=== PATIENT | male | born 1950 | race Caucasian/White ===

== ENCOUNTER → 2018-03-01 09:29 | Outpatient (CLI) | payer MEDICARE, MEDICAID, SELFPAY ==
[2018-03-01 10:02] LABS: Hematocrit 44.5 % (41-53); Hemoglobin 15.4 g/dL (13.5-17.5)
[2018-03-01 10:33] LABS: Blood Urea Nitrogen 24 mg/dL (9-20); Calcium 10.2 mg/dL (8.4-10.2); Carbon Dioxide 27 mmol/L (22-32); Chloride 101 mmol/L (98-107); Estimated Glomerular Filt Rate > 60.0 mL/min (>60); Glucose 90 mg/dL (80-110); HEMOLYSIS < 15 (0-50); Potassium 4.7 mmol/L (3.4-5.1); Sodium 137 mmol/L (137-145)
[2018-03-01 11:28] LABS: Creatinine Urine Random 69.3 mg/dL
[2018-03-01 11:40] LABS: Protein (Total) Urine Random 48 mg/dL (0-12); Protein Creatinine Ratio Urine 0.69 GRAM/24H
[2018-03-03 13:54] LABS: Parathyroid Hormone Int 24 pg/mL (14-64)
== END ==
PROVIDERS: PCP Family Medicine; Visit Provider Student in an Organized Health Care Education/Training Program
DX: N05.9 Unspecified nephritic syndrome with unspecified morphologic changes (principal); D64.9 Anemia, unspecified; N25.81 Secondary hyperparathyroidism of renal origin; R80.9 Proteinuria, unspecified
CPT/HCPCS: 36415; 80048; 82570; 83970; 84156; 85014; 85018

== ENCOUNTER → 2018-05-26 11:06 | Outpatient (CLI) | payer MEDICARE, MEDICAID, SELFPAY ==
[2018-05-26 12:57] LABS: BUN Creatinine Ratio 21.7 (6-22); Blood Urea Nitrogen 26 mg/dL (9-20); Calcium 10.5 mg/dL (8.4-10.2); Carbon Dioxide 29 mmol/L (22-32); Chloride 100 mmol/L (98-107); Estimated Glomerular Filt Rate > 60.0 mL/min (>60); Glucose 117 mg/dL (80-110); HEMOLYSIS < 15 (0-50); Potassium 5.2 mmol/L (3.4-5.1); Sodium 139 mmol/L (137-145)
[2018-05-26 15:58] LABS: Creatinine Urine Random 88.8 mg/dL; Protein (Total) Urine Random 41 mg/dL (0-12); Protein Creatinine Ratio Urine 0.46 GRAM/24H
[2018-05-27 14:23] LABS: Parathyroid Hormone Int 23 pg/mL (14-64)
== END ==
PROVIDERS: PCP Family Medicine; Visit Provider Student in an Organized Health Care Education/Training Program
DX: N05.9 Unspecified nephritic syndrome with unspecified morphologic changes (principal); R80.9 Proteinuria, unspecified; N25.81 Secondary hyperparathyroidism of renal origin
CPT/HCPCS: 36415; 80048; 82570; 83970; 84156

== ENCOUNTER → 2018-05-28 11:38 | Outpatient (CLI) | payer MEDICARE, MEDICAID, SELFPAY ==
[2018-05-28 12:30] LABS: BUN Creatinine Ratio 16.7 (6-22); Blood Urea Nitrogen 20 mg/dL (9-20); Calcium 9.1 mg/dL (8.4-10.2); Carbon Dioxide 26 mmol/L (22-32); Chloride 101 mmol/L (98-107); Estimated Glomerular Filt Rate > 60.0 mL/min (>60); Glucose 102 mg/dL (80-110); HEMOLYSIS < 15 (0-50); Potassium 4.4 mmol/L (3.4-5.1); Sodium 137 mmol/L (137-145)
== END ==
PROVIDERS: PCP Family Medicine; Visit Provider Student in an Organized Health Care Education/Training Program
DX: N05.9 Unspecified nephritic syndrome with unspecified morphologic changes (principal)
CPT/HCPCS: 36415; 80048

== ENCOUNTER → 2018-08-31 07:49 | Outpatient (CLI) | payer MEDICARE, MEDICAID, SELFPAY ==
--- NOTE | 2018-08-31 07:53 | DI.US.S_ITS ---
PROCEDURE: US ABD AORTA ANEURYSM SCREEN INDICATIONS: SCREENING TECHNIQUE: Real time scanning was performed of the aorta and iliac arteries, with image documentation. COMPARISON: [facility], CT, IVP (ABD & PEL WWO CONTRAST), 10/06/2017, 10:04. FINDINGS: Aorta: Proximal aortic diameter measures 2.3 cm. Mid-aorta measures 1.6 cm. Distal aortic diameter is 1.5 cm. aortic atherosclerosis is present. Iliac arteries: Right common iliac artery measures 1.1 cm. Left common iliac artery measures 0.9 cm. IMPRESSION: Atherosclerotic changes of the abdominal aorta without evidence of aneurysm. Dictated by: Dioni Zamarripa M.D. on 08/31/2018 at 8:53 Approved by: Dioni Zamarripa M.D. on 08/31/2018 at 8:54
== END ==
PROVIDERS: PCP Student in an Organized Health Care Education/Training Program; Visit Provider Student in an Organized Health Care Education/Training Program
DX: Z13.6 Encounter for screening for cardiovascular disorders (principal); I70.0 Atherosclerosis of aorta; F17.200 Nicotine dependence, unspecified, uncomplicated
CPT/HCPCS: 76706

== ENCOUNTER 2019-01-03 17:04 | Emergency (ER) | payer MEDICARE, MEDICAID, SELFPAY ==
[2019-01-03 17:25] VITALS: BP 176/103; PULSE 92; RESP 24; TEMP 36.6; O2SAT 99; BMI 20.7
[2019-01-03] MEDS: SODIUM CHLORIDE 0.9% 1,000 ML 1000 ML IV (17:43)
[2019-01-03 17:52] LABS: Add Manual Diff / Slide Review NO; Alanine Aminotransferase 23 IU/L (21-72); Albumin Globulin Ratio 1.2 (1.0-2.8); Alkaline Phosphatase 54 U/L (38-126); Aspartate Aminotransferase 30 IU/L (17-59); BUN Creatinine Ratio 15.4 (6-22); Basophils Absolute Auto 100 /uL (0-100); Basophils Percent Auto 0.7 % (0-2); Bilirubin Total 0.7 mg/dL (0.2-1.3); Blood Urea Nitrogen 20 mg/dL (9-20); Calcium 9.2 mg/dL (8.4-10.2); Carbon Dioxide 27 mmol/L (22-32); Chloride 98 mmol/L (98-107); Eosinophils Absolute Auto 900 /uL (0-450); Eosinophils Percent Auto 6.6 % (2-4); Estimated Glomerular Filt Rate 54.9 mL/min (>60); Globulin 3.3 g/dL (1.7-4.1); Glucose 94 mg/dL (80-110); HEMOLYSIS 87 (0-50); Hemoglobin 13.6 g/dL (13.5-17.5); Lipase 25 U/L (23-300); Lymphocytes Absolute Auto 3200 /uL (1100-4500); Lymphocytes Percent Auto 25.2 % (25-40); Mean Corpuscular HGB Conc 34.9 % (30-36); Mean Corpuscular Volume 94.5 fL (80-100); Monocytes Absolute Auto 800 /uL (0-900); Monocytes Percent Auto 6.1 % (3-14); Neutrophils Absolute Auto 7900 /uL (1500-7000); Neutrophils Percent Auto 61.4 % (50-75); Platelet Count 396 X10^3/uL (150-400); Red Blood Cell Count 4.13 X10^6/uL (4.5-5.9); Red Cell Distribution Width 12.7 % (11.6-14.8); Sodium 134 mmol/L (137-145); Total Protein 7.3 g/dL (6.3-8.2); White Blood Cell Count 12.9 X10^3/uL (4.5-11.0)
[2019-01-03 17:53] LABS: Potassium 4.6 mmol/L (3.4-5.1)
--- NOTE | 2019-01-03 18:10 | DI.CT.S_ITS ---
PROCEDURE: CT ABDOMEN PELVIS W CON INDICATIONS: pain, 1 week postop hernia, h/o pancreatitis TECHNIQUE: After the administration of intravenous contrast, 5 mm thick sections acquired from the diaphragm to the symphysis. 5 mm coronal and sagittal reformats were acquired. For radiation dose reduction, the following was used: automated exposure control, adjustment of mA and/or kV according to patient size. COMPARISON: [facility], CT, ABDOMEN/PELVIS WITH CONTRAST, 08/17/2014, 11:00. FINDINGS: Image quality: Excellent. ABDOMEN: Lung bases: Lung bases are clear. Heart size is normal. Small hiatal hernia. Solid organs: Liver is normal in size and enhancement. Gallbladder is distended without a thickened wall or fluid around the gallbladder or calcified gallstones.. Biliary system is non dilated. Pancreas enhances normally. Spleen is normal in size and enhancement. No adrenal nodules. Kidneys demonstrate normal size and enhancement, without hydronephrosis. Peritoneum and bowel: Mildly dilated loops of small and large bowel consistent with ileus. No obstruction seen. Remote rectal colonic surgical clips. No free fluid or air. Nodes and vessels: No retroperitoneal or mesenteric adenopathy by size criteria. Aorta and inferior vena cava are normal in size. Mild atherosclerotic calcifications in the aorta and iliacs. Miscellaneous: No ventral hernias. PELVIS: Genitourinary: Bladder wall thickness is normal. Miscellaneous: No inguinal hernias or adenopathy. Bones: No suspicious bony lesions. No vertebral body compression fractures. IMPRESSION: 1. Findings are consistent with ileus. No evidence of obstruction. 2. Mild atherosclerotic calcifications. Dictated by: Ulises Varghese M.D. on 01/03/2019 at 18:48 Approved by: Ulises Varghese M.D. on 01/03/2019 at 18:52
--- NOTE | 2019-01-03 18:10 | DI.RAD.S_ITS ---
PROCEDURE: XR CHEST 1V INDICATIONS: wheeze, abd/back pain TECHNIQUE: One view of the chest was acquired. COMPARISON: [facility], , CHEST 2 VIEW, 12/13/2015, 10:23. FINDINGS: Surgical changes and devices: None. Lungs and pleura: Findings are stable. Chronic scarring in the right upper lobe. No acute pulmonary infiltrates. No pleural effusions or pneumothorax. Mediastinum: Mediastinal contours appear normal. Heart size is normal. Bones and chest wall: No suspicious bony lesions. Overlying soft tissues appear unremarkable. IMPRESSION: No evidence acute pulmonary process. Dictated by: Ulises Varghese M.D. on 01/03/2019 at 18:29 Approved by: Ulises Varghese M.D. on 01/03/2019 at 18:30
[2019-01-03] MEDS: MORPHINE 4 MG/ML INJ IV ×2 (18:20→19:49)
[2019-01-03] MEDS: ONDANSETRON 4 MG/2 ML INJ IV (18:20)
--- NOTE | 2019-01-03 18:31 | ED.ABDPAIN ---
HPI - Abdominal Pain <Brittny Cyr PA-C - Last Filed: 01/03/19 22:00> General Chief Complaint: Abdominal Pain Stated Complaint: stomach pains Time Seen by Provider: 01/03/19 17:45 Source: patient Mode of arrival: ambulatory Limitations: no limitations History of Present Illness HPI narrative: This 68-year-old male comes in due to ?terrible? mid abdominal pain that started abruptly 2 hours ago. He states that this feels somewhat like years ago when he had to have part of his intestine removed due to ?bad bowel?, does not know what the exact problem was. He states that he has had some diarrhea in the last week. He has had a couple of episodes of vomiting though none today. He denies any fever. He states that the pain was radiating through to his back some time ago but is not now. He denies any exacerbating or alleviating features for the pain and states that it is constant. Denies any urinary symptoms or hematuria. He states that he had a groin hernia repaired 1 week ago and thought he was doing okay after surgery. He does take Oxford usually for multiple herniated discs in his back/chronic pain, but states he has not been taking that regularly recently. He denies any chest pain or dyspnea. No new pain in the extremities or other complaints on systems review. He his somewhat vague about the details of his symptoms and medical history, also reviewed nodes per PCP Related Data Home Medications Medication Instructions Recorded Confirmed bismuth subsalicylate #0 05/08/17 11/02/18 [Pepto-Bismol Max St] ranitidine HCl 150 mg PO QDAY #0 05/08/17 11/02/18 albuterol sulfate [Ventolin HFA] 1 puff INHALATION Q4H PRN 01/03/19 01/03/19 dupilumab [Dupixent] 01/03/19 trazodone 50 - 150 mg PO BEDTIME PRN 01/03/19 01/03/19 Previous Rx's Medication Instructions Recorded lorazepam 1 mg tablet 1 mg PO BIDP PRN #60 tab 11/02/18 oxycodone-acetaminophen 7.5 mg-325 1 tab PO TID PRN #90 tab 11/02/18 mg tablet Allergies Allergy/AdvReac Type Severity Reaction Status Date / Time shrimp [SHRIMP] Allergy Unknown Verified 01/03/19 17:40 Review of Systems <Brittny Cyr PA-C - Last Filed: 01/03/19 22:00> Review of Systems ROS Unobtainable: All systems reviewed & are unremarkable except as noted in HPI and below PFSH <Brittny Cyr PA-C - Last Filed: 01/03/19 22:00> Medical History (Updated 01/03/19 @ 21:23 by Kermit Carter RN) Renal insufficiency (Chronic) Chronic low back pain (Chronic 07/23/15) Asthma (Chronic Unknown) Blind in both eyes (Chronic 2013) COPD (chronic obstructive pulmonary disease) (Chronic Unknown) Chronic back pain (Chronic 2005) Chronic kidney disease (CKD) (Chronic Unknown) Dermatitis (Chronic Unknown) Eczema (Chronic 1999) GERD (gastroesophageal reflux disease) (Chronic Unknown) Hypercalcemia (Chronic Unknown) Hypertension (Chronic Unknown) Pancreatitis (Chronic Unknown) Psoriasis (Chronic 1999) Chickenpox (Resolved 1960) Hx SBO (Resolved ~2009) Measles (Resolved 1958) Mumps (Resolved 1963) Surgical History (Updated 01/03/19 @ 18:33 by Brittny Cyr PA-C) S/P hernia repair (Acute) S/P small bowel resection (Resolved ~2009) Family History Brother No problems noted. Father Heart disease Grandfather Influenza Grandmother No problems noted. Mother No problems noted. Grandfather No problems noted. Grandmother No problems noted. Social History Smoking Status: Current every day smoker Social History Smoking Status: Current every day smoker Exam <Brittny Cyr PA-C - Last Filed: 01/03/19 22:00> Narrative Exam Narrative: GENERAL APPEARANCE: Patient appears uncomfortable but in NAD HEENT: PERRL, EOMI, no scleral icterus NECK: Supple LUNGS: Clear to auscultation bilaterally. HEART: Rate and rhythm regular, normal S1 and S2, no S3 or S4. ABDOMEN: Soft, perhaps mildly distended, bowel sounds present x 4 quadrants, no palpable masses. Diffuse tenderness most prominent in the midline. no palpable HSM or CVAT. No clear guarding or rebound EXTREMITIES: No edema, no calf tenderness DERMATOLOGIC: No jaundice or exanthem NEUROLOGIC: Alert and oriented with normal speech and coordination. He is ambulating on his own through the department back and forth to the restroom Initial Vital Signs Initial Vital Signs: Vital Signs Temperature 97.8 F 01/03/19 17:25 Pulse Rate 92 H 01/03/19 17:25 Respiratory Rate 24 01/03/19 17:25 Blood Pressure 176/103 H 01/03/19 17:25 Pulse Oximetry 99 01/03/19 17:25 <Manpreet Hodges DO - Last Filed: 01/04/19 06:11> Initial Vital Signs Initial Vital Signs: Vital Signs Temperature 97.8 F 01/03/19 17:25 Pulse Rate 92 H 01/03/19 17:25 Respiratory Rate 24 01/03/19 17:25 Blood Pressure 176/103 H 01/03/19 17:25 Pulse Oximetry 99 01/03/19 17:25 Course <Brittny Cyr PA-C - Last Filed: 01/03/19 22:00> Additional Information: Patient initially reported feeling improvement in nausea and some improvement after 1st dose of morphine. He then requested more pain medication while we were waiting for call back from surgeon at [facility] due to patient's postoperative ileus. Advised that he may need to be admitted for fluids and pain control. After 2nd dose of pain medication, he got up to use the restroom and we found that he had ripped out his IV and left. Prior to receiving pain medication he agreed that he would get a ride if needed. Due to concern for impaired driving as well as patient welfare, police were called and this was reported. Patient was noted to be ambulatory on his own in the department multiple times prior to walking out Orders Ordered: Discontinued Medications Sodium Chloride (Normal Saline 0.9%) 1,000 mls @ 1,000 mls/hr IV BOLUS ONE Stop: 01/03/19 18:29 Last Infusion: 01/03/19 20:28 Dose: 0 mls/hr Admin: 01/03/19 17:43 Dose: 1,000 mls/hr Sodium Chloride (Normal Saline 0.9%) 1,000 mls @ 125 mls/hr IV CONT NEO Morphine Sulfate (Morphine) 4 mg IV NOW ONE Stop: 01/03/19 18:11 Last Admin: 01/03/19 18:20 Dose: 4 mg Morphine Sulfate (Morphine) 4 mg IV NOW ONE Stop: 01/03/19 19:36 Last Admin: 01/03/19 19:49 Dose: 4 mg Ondansetron HCl (Zofran) 4 mg IV NOW ONE Stop: 01/03/19 18:11 Last Admin: 01/03/19 18:20 Dose: 4 mg Vital Signs - 8 hr 01/03/19 17:25 01/03/19 19:30 Temperature 97.8 F Pulse Rate 92 H 96 H Respiratory Rate 24 23 Blood Pressure 176/103 H Blood Pressure [Left Arm] 154/105 H Pulse Oximetry 99 100 <Manpreet Hodges DO - Last Filed: 01/04/19 06:11> Orders Ordered: Discontinued Medications Sodium Chloride (Normal Saline 0.9%) 1,000 mls @ 1,000 mls/hr IV BOLUS ONE Stop: 01/03/19 18:29 Last Infusion: 01/03/19 20:28 Dose: 0 mls/hr Admin: 01/03/19 17:43 Dose: 1,000 mls/hr Sodium Chloride (Normal Saline 0.9%) 1,000 mls @ 125 mls/hr IV CONT NEO Morphine Sulfate (Morphine) 4 mg IV NOW ONE Stop: 01/03/19 18:11 Last Admin: 01/03/19 18:20 Dose: 4 mg Morphine Sulfate (Morphine) 4 mg IV NOW ONE Stop: 01/03/19 19:36 Last Admin: 01/03/19 19:49 Dose: 4 mg Ondansetron HCl (Zofran) 4 mg IV NOW ONE Stop: 01/03/19 18:11 Last Admin: 01/03/19 18:20 Dose: 4 mg Vital Signs - 8 hr 01/03/19 17:25 01/03/19 19:30 Temperature 97.8 F Pulse Rate 92 H 96 H Respiratory Rate 24 23 Blood Pressure 176/103 H Blood Pressure [Left Arm] 154/105 H Pulse Oximetry 99 100 MDM - Abdominal Pain <Brittny Cyr PA-C - Last Filed: 01/03/19 22:00> Lab Data Attestation: I reviewed the patient's lab results. Result diagrams: 01/03/19 17:39 01/03/19 17:39 Lab Results 01/03/19 01/03/19 01/03/19 Range/Units 17:39 17:39 17:54 WBC 12.9 H (4.5-11.0) X10^3/uL RBC 4.13 L (4.5-5.9) X10^6/uL Hgb 13.6 (13.5-17.5) g/dL Hct 39.0 L (41-53) % MCV 94.5 (80-100) fL MCH 33.0 (26-34) PG MCHC 34.9 (30-36) % RDW 12.7 (11.6-14.8) % Plt Count 396 (150-400) X10^3/uL Neut % (Auto) 61.4 (50-75) % Lymph % (Auto) 25.2 (25-40) % Estill % (Auto) 6.1 (3-14) % Eos % (Auto) 6.6 H (2-4) % Baso % (Auto) 0.7 (0-2) % Neut # (Auto) 7900 H (4922-3546) /uL Lymph # (Auto) 3200 (6257-2482) /uL Estill # (Auto) 800 (0-900) /uL Eos # (Auto) 900 H (0-450) /uL Baso # (Auto) 100 (0-100) /uL Sodium 134 L (137-145) mmol/L Potassium 4.6 (3.4-5.1) mmol/L Chloride 98 (98-107) mmol/L Carbon Dioxide 27 (22-32) mmol/L BUN 20 (9-20) mg/dL Creatinine 1.30 H (0.66-1.25) mg/dL Estimated GFR 54.9 L (>60) mL/min BUN/Creatinine Ratio 15.4 (6-22) Glucose 94 (80-110) mg/dL Lactate 1.1 (0.7-2.1) mmol/L Calcium 9.2 (8.4-10.2) mg/dL Total Bilirubin 0.7 (0.2-1.3) mg/dL AST 30 (17-59) IU/L ALT 23 (21-72) IU/L Alkaline Phosphatase 54 (38-126) U/L Total Protein 7.3 (6.3-8.2) g/dL Albumin 4.0 (3.5-5.0) g/dL Globulin 3.3 (1.7-4.1) g/dL Albumin/Globulin Ratio 1.2 (1.0-2.8) Lipase 25 (23-300) U/L Point of care testing: Urine Dip Bedside Urine Glucose Negative Bedside Urine Bilirubin - Negative Bedside Urine Ketone +/- 5 Urine Specific Davidson 1.015 Bedside Urine Occult Blood +/- Bedside Urine pH 8.5 Bedside Urine Protein - Negative Bedside Urine Urobilinogen - Negative Bedside Urine Nitrite - Negative Bedside Urine Leukocytes - Negative Esterase Imaging Data CT scan - abdomen: Radiologist's impression: [address] [address] [address] Scan Report Signed Patient: Arthur Quinteros [facility]#: [id number] : 1Acct:[id number] Age/Sex: 68 / MDate of Service: 01/03/19 Loc: ED Accession Number: [id number] Procedure: CT abdomen pelvis w con Ordering Provider: Brittny Cyr P.A-C PROCEDURE: CT ABDOMEN PELVIS W CON INDICATIONS: pain, 1 week postop hernia, h/o pancreatitis TECHNIQUE: After the administration of intravenous contrast, 5 mm thick sections acquired from the diaphragm to the symphysis. 5 mm coronal and sagittal reformats were acquired. For radiation dose reduction, the following was used: automated exposure control, adjustment of mA and/or kV according to patient size. COMPARISON: [facility], CT, ABDOMEN/PELVIS WITH CONTRAST, 08/17/2014, 11:00. FINDINGS: Image quality: Excellent. ABDOMEN: Lung bases: Lung bases are clear. Heart size is normal. Small hiatal hernia. Solid organs: Liver is normal in size and enhancement. Gallbladder is distended without a thickened wall or fluid around the gallbladder or calcified gallstones.. Biliary system is non dilated. Pancreas enhances normally. Spleen is normal in size and enhancement. No adrenal nodules. Kidneys demonstrate normal size and enhancement, without hydronephrosis. Peritoneum and bowel: Mildly dilated loops of small and large bowel consistent with ileus. No obstruction seen. Remote rectal colonic surgical clips. No free fluid or air. Nodes and vessels: No retroperitoneal or mesenteric adenopathy by size criteria. Aorta and inferior vena cava are normal in size. Mild atherosclerotic calcifications in the aorta and iliacs. Miscellaneous: No ventral hernias. PELVIS: Genitourinary: Bladder wall thickness is normal. Miscellaneous: No inguinal hernias or adenopathy. Bones: No suspicious bony lesions. No vertebral body compression fractures. IMPRESSION: 1. Findings are consistent with ileus. No evidence of obstruction. 2. Mild atherosclerotic calcifications. Dictated by: Ulises Varghese M.D. on 01/03/2019 at 18:48 Approved by: Ulises Varghese M.D. on 01/03/2019 at 18:52 <Manpreet Hodges DO - Last Filed: 01/04/19 06:11> Lab Data Lab Results 01/03/19 01/03/19 01/03/19 Range/Units 17:39 17:39 17:54 WBC 12.9 H (4.5-11.0) X10^3/uL RBC 4.13 L (4.5-5.9) X10^6/uL Hgb 13.6 (13.5-17.5) g/dL Hct 39.0 L (41-53) % MCV 94.5 (80-100) fL MCH 33.0 (26-34) PG MCHC 34.9 (30-36) % RDW 12.7 (11.6-14.8) % Plt Count 396 (150-400) X10^3/uL Neut % (Auto) 61.4 (50-75) % Lymph % (Auto) 25.2 (25-40) % [place]ill % (Auto) 6.1 (3-14) % Eos % (Auto) 6.6 H (2-4) % Baso % (Auto) 0.7 (0-2) % Neut # (Auto) 7900 H (7128-1198) /uL Lymph # (Auto) 3200 (4650-6621) /uL [place]ill # (Auto) 800 (0-900) /uL Eos # (Auto) 900 H (0-450) /uL Baso # (Auto) 100 (0-100) /uL Sodium 134 L (137-145) mmol/L Potassium 4.6 (3.4-5.1) mmol/L Chloride 98 (98-107) mmol/L Carbon Dioxide 27 (22-32) mmol/L BUN 20 (9-20) mg/dL Creatinine 1.30 H (0.66-1.25) mg/dL Estimated GFR 54.9 L (>60) mL/min BUN/Creatinine Ratio 15.4 (6-22) Glucose 94 (80-110) mg/dL Lactate 1.1 (0.7-2.1) mmol/L Calcium 9.2 (8.4-10.2) mg/dL Total Bilirubin 0.7 (0.2-1.3) mg/dL AST 30 (17-59) IU/L ALT 23 (21-72) IU/L Alkaline Phosphatase 54 (38-126) U/L Total Protein 7.3 (6.3-8.2) g/dL Albumin 4.0 (3.5-5.0) g/dL Globulin 3.3 (1.7-4.1) g/dL Albumin/Globulin Ratio 1.2 (1.0-2.8) Lipase 25 (23-300) U/L Point of care testing: Urine Dip Bedside Urine Glucose Negative Bedside Urine Bilirubin - Negative Bedside Urine Ketone +/- 5 Urine Specific Davidson 1.015 Bedside Urine Occult Blood +/- Bedside Urine pH 8.5 Bedside Urine Protein - Negative Bedside Urine Urobilinogen - Negative Bedside Urine Nitrite - Negative Bedside Urine Leukocytes - Negative Esterase Discharge Plan Departure Patient Disposition: Left Against Medical Advice Clinical Impression: Left against medical advice Discharge Date/Time: 01/03/19 21:22 Interventions: ED Discharge Assessment Last Done: 01/03/19 21:22 Prescriptions: No Action ranitidine HCl 150 MG tablet 150 mg PO QDAY Qty: 0 RF: 0 bismuth subsalicylate [Pepto-Bismol Max St] 525 MG/15 ML suspension Qty: 0 RF: 0 lorazepam 1 mg tablet 1 mg PO BIDP PRN (Reason: anxiety) Qty: 60 RF: 5 oxycodone-acetaminophen 7.5-325 mg tablet 1 tab PO TID PRN (Reason: pain) Qty: 90 RF: 0 trazodone 50 mg tablet 50 - 150 mg PO BEDTIME PRN (Reason: Sleep) RF: 0 albuterol sulfate [Ventolin HFA] 90 mcg/actuation HFA aerosol inhaler 1 puff Inhalation Q4H PRN (Reason: Shortness Of Breath Or Wheezing) RF: 0 Dupixent 300 mg/2 mL syringe RF: 0 Referrals: Jama Pruett MD [Primary Care Provider] - Richi Nunez MD [Non-Staff] - Stand Alone Forms: Against Medical Advice <Manpreet Hodges DO - Last Filed: 01/04/19 06:11> Cosign ED Attending Nohemyature Attestation: I was immediately available in the department for consultation. Documentation has been reviewed. I agree with assessment and plan.
--- NOTE | 2019-01-03 18:34 | ED_ITS ---
HPI - Abdominal Pain <Brittny Cyr PA-C - Last Filed: 01/03/19 22:00> General Chief Complaint: Abdominal Pain Stated Complaint: stomach pains Time Seen by Provider: 01/03/19 17:45 Source: patient Mode of arrival: ambulatory Limitations: no limitations History of Present Illness HPI narrative: This 68-year-old male comes in due to ?terrible? mid abdominal pain that started abruptly 2 hours ago. He states that this feels somewhat like years ago when he had to have part of his intestine removed due to ?bad bowel?, does not know what the exact problem was. He states that he has had some diarrhea in the last week. He has had a couple of episodes of vomiting though none today. He denies any fever. He states that the pain was radiating through to his back some time ago but is not now. He denies any exacerbating or alleviating features for the pain and states that it is constant. Denies any urinary symptoms or hematuria. He states that he had a groin hernia repaired 1 week ago and thought he was doing okay after surgery. He does take [place] usually for multiple herniated discs in his back/chronic pain, but states he has not been taking that regularly recently. He denies any chest pain or dyspnea. No new pain in the extremities or other complaints on systems review. He his somewhat vague about the details of his symptoms and medical history, also reviewed nodes per PCP Related Data Home Medications Medication Instructions Recorded Confirmed bismuth subsalicylate #0 05/08/17 11/02/18 [Pepto-Bismol Max St] ranitidine HCl 150 mg PO QDAY #0 05/08/17 11/02/18 albuterol sulfate [Ventolin HFA] 1 puff INHALATION Q4H PRN 01/03/19 01/03/19 dupilumab [Dupixent] 01/03/19 trazodone 50 - 150 mg PO BEDTIME PRN 01/03/19 01/03/19 Previous Rx's Medication Instructions Recorded lorazepam 1 mg tablet 1 mg PO BIDP PRN #60 tab 11/02/18 oxycodone-acetaminophen 7.5 mg-325 1 tab PO TID PRN #90 tab 11/02/18 mg tablet Allergies Allergy/AdvReac Type Severity Reaction Status Date / Time shrimp [SHRIMP] Allergy Unknown Verified 01/03/19 17:40 Review of Systems <Brittny Cyr PA-C - Last Filed: 01/03/19 22:00> Review of Systems ROS Unobtainable: All systems reviewed & are unremarkable except as noted in HPI and below PFSH <Brittny Cyr PA-C - Last Filed: 01/03/19 22:00> Medical History (Updated 01/03/19 @ 21:23 by Kermit Carter RN) Renal insufficiency (Chronic) Chronic low back pain (Chronic 07/23/15) Asthma (Chronic Unknown) Blind in both eyes (Chronic 2013) COPD (chronic obstructive pulmonary disease) (Chronic Unknown) Chronic back pain (Chronic 2005) Chronic kidney disease (CKD) (Chronic Unknown) Dermatitis (Chronic Unknown) Eczema (Chronic 1999) GERD (gastroesophageal reflux disease) (Chronic Unknown) Hypercalcemia (Chronic Unknown) Hypertension (Chronic Unknown) Pancreatitis (Chronic Unknown) Psoriasis (Chronic 1999) Chickenpox (Resolved 1960) Hx SBO (Resolved ~2009) Measles (Resolved 1958) Mumps (Resolved 1963) Surgical History (Updated 01/03/19 @ 18:33 by Brittny Cyr PA-C) S/P hernia repair (Acute) S/P small bowel resection (Resolved ~2009) Family History Brother No problems noted. Father Heart disease Grandfather Influenza Grandmother No problems noted. Mother No problems noted. Grandfather No problems noted. Grandmother No problems noted. Social History Smoking Status: Current every day smoker Social History Smoking Status: Current every day smoker Exam <Brittny Cyr PA-C - Last Filed: 01/03/19 22:00> Narrative Exam Narrative: GENERAL APPEARANCE: Patient appears uncomfortable but in NAD HEENT: PERRL, EOMI, no scleral icterus NECK: Supple LUNGS: Clear to auscultation bilaterally. HEART: Rate and rhythm regular, normal S1 and S2, no S3 or S4. ABDOMEN: Soft, perhaps mildly distended, bowel sounds present x 4 quadrants, no palpable masses. Diffuse tenderness most prominent in the midline. no palpable HSM or CVAT. No clear guarding or rebound EXTREMITIES: No edema, no calf tenderness DERMATOLOGIC: No jaundice or exanthem NEUROLOGIC: Alert and oriented with normal speech and coordination. He is ambulating on his own through the department back and forth to the restroom Initial Vital Signs Initial Vital Signs: Vital Signs Temperature 97.8 F 01/03/19 17:25 Pulse Rate 92 H 01/03/19 17:25 Respiratory Rate 24 01/03/19 17:25 Blood Pressure 176/103 H 01/03/19 17:25 Pulse Oximetry 99 01/03/19 17:25 <Manpreet Hodges DO - Last Filed: 01/04/19 06:11> Initial Vital Signs Initial Vital Signs: Vital Signs Temperature 97.8 F 01/03/19 17:25 Pulse Rate 92 H 01/03/19 17:25 Respiratory Rate 24 01/03/19 17:25 Blood Pressure 176/103 H 01/03/19 17:25 Pulse Oximetry 99 01/03/19 17:25 Course <Brittny Cyr PA-C - Last Filed: 01/03/19 22:00> Additional Information: Patient initially reported feeling improvement in nausea and some improvement after 1st dose of morphine. He then requested more pain medication while we were waiting for call back from surgeon at [facility] due to patient's postoperative ileus. Advised that he may need to be admitted for fluids and pain control. After 2nd dose of pain medication, he got up to use the restroom and we found that he had ripped out his IV and left. Prior to receiving pain medication he agreed that he would get a ride if needed. Due to concern for impaired driving as well as patient welfare, police were called and this was reported. Patient was noted to be ambulatory on his own in the department multiple times prior to walking out Orders Ordered: Discontinued Medications Sodium Chloride (Normal Saline 0.9%) 1,000 mls @ 1,000 mls/hr IV BOLUS ONE Stop: 01/03/19 18:29 Last Infusion: 01/03/19 20:28 Dose: 0 mls/hr Admin: 01/03/19 17:43 Dose: 1,000 mls/hr Sodium Chloride (Normal Saline 0.9%) 1,000 mls @ 125 mls/hr IV CONT NEO Morphine Sulfate (Morphine) 4 mg IV NOW ONE Stop: 01/03/19 18:11 Last Admin: 01/03/19 18:20 Dose: 4 mg Morphine Sulfate (Morphine) 4 mg IV NOW ONE Stop: 01/03/19 19:36 Last Admin: 01/03/19 19:49 Dose: 4 mg Ondansetron HCl (Zofran) 4 mg IV NOW ONE Stop: 01/03/19 18:11 Last Admin: 01/03/19 18:20 Dose: 4 mg Vital Signs - 8 hr 01/03/19 17:25 01/03/19 19:30 Temperature 97.8 F Pulse Rate 92 H 96 H Respiratory Rate 24 23 Blood Pressure 176/103 H Blood Pressure [Left Arm] 154/105 H Pulse Oximetry 99 100 <Manpreet Hodges DO - Last Filed: 01/04/19 06:11> Orders Ordered: Discontinued Medications Sodium Chloride (Normal Saline 0.9%) 1,000 mls @ 1,000 mls/hr IV BOLUS ONE Stop: 01/03/19 18:29 Last Infusion: 01/03/19 20:28 Dose: 0 mls/hr Admin: 01/03/19 17:43 Dose: 1,000 mls/hr Sodium Chloride (Normal Saline 0.9%) 1,000 mls @ 125 mls/hr IV CONT NEO Morphine Sulfate (Morphine) 4 mg IV NOW ONE Stop: 01/03/19 18:11 Last Admin: 01/03/19 18:20 Dose: 4 mg Morphine Sulfate (Morphine) 4 mg IV NOW ONE Stop: 01/03/19 19:36 Last Admin: 01/03/19 19:49 Dose: 4 mg Ondansetron HCl (Zofran) 4 mg IV NOW ONE Stop: 01/03/19 18:11 Last Admin: 01/03/19 18:20 Dose: 4 mg Vital Signs - 8 hr 01/03/19 17:25 01/03/19 19:30 Temperature 97.8 F Pulse Rate 92 H 96 H Respiratory Rate 24 23 Blood Pressure 176/103 H Blood Pressure [Left Arm] 154/105 H Pulse Oximetry 99 100 MDM - Abdominal Pain <Brittny Cyr PA-C - Last Filed: 01/03/19 22:00> Lab Data Attestation: I reviewed the patient's lab results. Result diagrams: 01/03/19 17:39 01/03/19 17:39 Lab Results 01/03/19 01/03/19 01/03/19 Range/Units 17:39 17:39 17:54 WBC 12.9 H (4.5-11.0) X10^3/uL RBC 4.13 L (4.5-5.9) X10^6/uL Hgb 13.6 (13.5-17.5) g/dL Hct 39.0 L (41-53) % MCV 94.5 (80-100) fL MCH 33.0 (26-34) PG MCHC 34.9 (30-36) % RDW 12.7 (11.6-14.8) % Plt Count 396 (150-400) X10^3/uL Neut % (Auto) 61.4 (50-75) % Lymph % (Auto) 25.2 (25-40) % [place] % (Auto) 6.1 (3-14) % Eos % (Auto) 6.6 H (2-4) % Baso % (Auto) 0.7 (0-2) % Neut # (Auto) 7900 H (4431-6993) /uL Lymph # (Auto) 3200 (1214-5956) /uL [place] # (Auto) 800 (0-900) /uL Eos # (Auto) 900 H (0-450) /uL Baso # (Auto) 100 (0-100) /uL Sodium 134 L (137-145) mmol/L Potassium 4.6 (3.4-5.1) mmol/L Chloride 98 (98-107) mmol/L Carbon Dioxide 27 (22-32) mmol/L BUN 20 (9-20) mg/dL Creatinine 1.30 H (0.66-1.25) mg/dL Estimated GFR 54.9 L (>60) mL/min BUN/Creatinine Ratio 15.4 (6-22) Glucose 94 (80-110) mg/dL Lactate 1.1 (0.7-2.1) mmol/L Calcium 9.2 (8.4-10.2) mg/dL Total Bilirubin 0.7 (0.2-1.3) mg/dL AST 30 (17-59) IU/L ALT 23 (21-72) IU/L Alkaline Phosphatase 54 (38-126) U/L Total Protein 7.3 (6.3-8.2) g/dL Albumin 4.0 (3.5-5.0) g/dL Globulin 3.3 (1.7-4.1) g/dL Albumin/Globulin Ratio 1.2 (1.0-2.8) Lipase 25 (23-300) U/L Point of care testing: Urine Dip Bedside Urine Glucose Negative Bedside Urine Bilirubin - Negative Bedside Urine Ketone +/- 5 Urine Specific [place] 1.015 Bedside Urine Occult Blood +/- Bedside Urine pH 8.5 Bedside Urine Protein - Negative Bedside Urine Urobilinogen - Negative Bedside Urine Nitrite - Negative Bedside Urine Leukocytes - Negative Esterase Imaging Data CT scan - abdomen: Radiologist's impression: [address] [address] [address] Scan Report Signed Patient: Arthur Quinteros [facility]#: [id number] : [id number]:[id number] Age/Sex: 68 / MDate of Service: 01/03/19 Loc: ED Accession Number: [id number] Procedure: CT abdomen pelvis w con Ordering Provider: Brittny Cyr P.A-C PROCEDURE: CT ABDOMEN PELVIS W CON INDICATIONS: pain, 1 week postop hernia, h/o pancreatitis TECHNIQUE: After the administration of intravenous contrast, 5 mm thick sections acquired from the diaphragm to the symphysis. 5 mm coronal and sagittal reformats were acquired. For radiation dose reduction, the following was used: automated exposure control, adjustment of mA and/or kV according to patient size. COMPARISON: [facility], CT, ABDOMEN/PELVIS WITH CONTRAST, 08/17/2014, 11:00. FINDINGS: Image quality: Excellent. ABDOMEN: Lung bases: Lung bases are clear. Heart size is normal. Small hiatal hernia. Solid organs: Liver is normal in size and enhancement. Gallbladder is distended without a thickened wall or fluid around the gallbladder or calcified gallstones.. Biliary system is non dilated. Pancreas enhances normally. Spleen is normal in size and enhancement. No adrenal nodules. Kidneys demonstrate normal size and enhancement, without hydronephrosis. Peritoneum and bowel: Mildly dilated loops of small and large bowel consistent with ileus. No obstruction seen. Remote rectal colonic surgical clips. No free fluid or air. Nodes and vessels: No retroperitoneal or mesenteric adenopathy by size criteria. Aorta and inferior vena cava are normal in size. Mild atherosclerotic calcifications in the aorta and iliacs. Miscellaneous: No ventral hernias. PELVIS: Genitourinary: Bladder wall thickness is normal. Miscellaneous: No inguinal hernias or adenopathy. Bones: No suspicious bony lesions. No vertebral body compression fractures. IMPRESSION: 1. Findings are consistent with ileus. No evidence of obstruction. 2. Mild atherosclerotic calcifications. Dictated by: Ulises Varghese M.D. on 01/03/2019 at 18:48 Approved by: Ulises Varghese M.D. on 01/03/2019 at 18:52 <Manpreet Hodges DO - Last Filed: 01/04/19 06:11> Lab Data Lab Results 01/03/19 01/03/19 01/03/19 Range/Units 17:39 17:39 17:54 WBC 12.9 H (4.5-11.0) X10^3/uL RBC 4.13 L (4.5-5.9) X10^6/uL Hgb 13.6 (13.5-17.5) g/dL Hct 39.0 L (41-53) % MCV 94.5 (80-100) fL MCH 33.0 (26-34) PG MCHC 34.9 (30-36) % RDW 12.7 (11.6-14.8) % Plt Count 396 (150-400) X10^3/uL Neut % (Auto) 61.4 (50-75) % Lymph % (Auto) 25.2 (25-40) % [place] % (Auto) 6.1 (3-14) % Eos % (Auto) 6.6 H (2-4) % Baso % (Auto) 0.7 (0-2) % Neut # (Auto) 7900 H (6220-1673) /uL Lymph # (Auto) 3200 (9813-0605) /uL [place] # (Auto) 800 (0-900) /uL Eos # (Auto) 900 H (0-450) /uL Baso # (Auto) 100 (0-100) /uL Sodium 134 L (137-145) mmol/L Potassium 4.6 (3.4-5.1) mmol/L Chloride 98 (98-107) mmol/L Carbon Dioxide 27 (22-32) mmol/L BUN 20 (9-20) mg/dL Creatinine 1.30 H (0.66-1.25) mg/dL Estimated GFR 54.9 L (>60) mL/min BUN/Creatinine Ratio 15.4 (6-22) Glucose 94 (80-110) mg/dL Lactate 1.1 (0.7-2.1) mmol/L Calcium 9.2 (8.4-10.2) mg/dL Total Bilirubin 0.7 (0.2-1.3) mg/dL AST 30 (17-59) IU/L ALT 23 (21-72) IU/L Alkaline Phosphatase 54 (38-126) U/L Total Protein 7.3 (6.3-8.2) g/dL Albumin 4.0 (3.5-5.0) g/dL Globulin 3.3 (1.7-4.1) g/dL Albumin/Globulin Ratio 1.2 (1.0-2.8) Lipase 25 (23-300) U/L Point of care testing: Urine Dip Bedside Urine Glucose Negative Bedside Urine Bilirubin - Negative Bedside Urine Ketone +/- 5 Urine Specific [place] 1.015 Bedside Urine Occult Blood +/- Bedside Urine pH 8.5 Bedside Urine Protein - Negative Bedside Urine Urobilinogen - Negative Bedside Urine Nitrite - Negative Bedside Urine Leukocytes - Negative Esterase Discharge Plan Departure Patient Disposition: Left Against Medical Advice Clinical Impression: Left against medical advice Discharge Date/Time: 01/03/19 21:22 Interventions: ED Discharge Assessment Last Done: 01/03/19 21:22 Prescriptions: No Action ranitidine HCl 150 MG tablet 150 mg PO QDAY Qty: 0 RF: 0 bismuth subsalicylate [Pepto-Bismol Max St] 525 MG/15 ML suspension Qty: 0 RF: 0 lorazepam 1 mg tablet 1 mg PO BIDP PRN (Reason: anxiety) Qty: 60 RF: 5 oxycodone-acetaminophen 7.5-325 mg tablet 1 tab PO TID PRN (Reason: pain) Qty: 90 RF: 0 trazodone 50 mg tablet 50 - 150 mg PO BEDTIME PRN (Reason: Sleep) RF: 0 albuterol sulfate [Ventolin HFA] 90 mcg/actuation HFA aerosol inhaler 1 puff Inhalation Q4H PRN (Reason: Shortness Of Breath Or Wheezing) RF: 0 Dupixent 300 mg/2 mL syringe RF: 0 Referrals: Jama Pruett MD [Primary Care Provider] - Richi Nunez MD [Non-Staff] - Stand Alone Forms: Against Medical Advice <Manpreet Hodges DO - Last Filed: 01/04/19 06:11> Cosign ED Attending Nohemyature Attestation: I was immediately available in the department for consultation. Documentation has been reviewed. I agree with assessment and plan.
[2019-01-03 18:37] LABS: Lactate (Lactic Acid) 1.1 mmol/L (0.7-2.1)
[2019-01-03 19:30] VITALS: BP 154/105; PULSE 96; RESP 23; O2SAT 100
--- NOTE | 2019-01-03 19:51 | PC.NURSE ---
Patient continually coming out of room and demanding pain medications. Notified provider multiple times. Notified of waiting for provider as well as for [facility] to call back. Pt confronts multiple staff and demands help. States he has never seen a provider and has not had any pain medications. Reminded that he has had Morphine, zofran, and some IV fluids. Pt does not stay in bed to remain connected to IV fluids. Provider notified multiple times that patient requests additional pain medication.
--- NOTE | 2019-01-03 20:14 | PC.NURSE ---
attempt to check on patient. Patient is not in room. IV has been removed and fluids are still running on the floor. unknown what time he left. Provider is already aware.
== END 2019-01-03 21:22 | disposition left against medical advice (07) ==
PROVIDERS: Emergency Medicine; Emergency Provider Internal Medicine; PCP Student in an Organized Health Care Education/Training Program
DX: R10.9 Unspecified abdominal pain (principal)
CPT/HCPCS: 36415; 36591; 71045; 74177; 80053; 81003; 83605; 83690; 85025; 96361; 96374; 96375; 96376; 99283; 99284; J2270; J2405; Q9967

== ENCOUNTER 2019-03-01 09:40 | Inpatient (IN) | payer MEDICARE, SELFPAY ==
[2019-03-01] VITALS (9 sets, daily range): BP systolic 100–146; BP diastolic 71–101; PULSE 72–87; RESP 15–25; TEMP 36.1–36.6; O2SAT 97–100; BMI 17.4
--- NOTE | 2019-03-01 09:54 | DI.RAD.S_ITS ---
PROCEDURE: XR CHEST 1V INDICATIONS: chest pain, weakness, tob abuse, told elevated ca TECHNIQUE: One view of the chest was acquired. COMPARISON: [facility], CT, CT ANGIO CHEST PE, 01/14/2019, 15:01. [facility], CR, XR CHEST 1 VIEW, 01/18/2019, 10:07. FINDINGS: Surgical changes and devices: None. Lungs and pleura: There is shallow lungs is similar to the prior study with mild pulmonary consolidation identified within the right mid lung and a possible scattered areas of mild pulmonary consolidation along the lateral margin of the left lung. Mediastinum: Mediastinal contours appear normal. Heart size is normal. Bones and chest wall: No suspicious bony lesions. Calcific tendinitis of the left shoulder appears to be present. Overlying soft tissues appear unremarkable. IMPRESSION: Patchy airspace disease within the lungs is similar to the previous examination, suspicious for pneumonia. Superimposed chronic lung changes probably are present. The possibility of a right hilar lesion is difficult to exclude. Dictated by: Dioni Zamarripa M.D. on 03/01/2019 at 9:32 Approved by: Dioni Zamarripa M.D. on 03/01/2019 at 9:35
--- NOTE | 2019-03-01 09:57 | ED.SOB ---
HPI - SOB/Dyspnea General Chief Complaint: Shortness of Breath/Dyspnea Stated Complaint: Sent by doctor. Blood is not right Time Seen by Provider: 03/01/19 09:43 Source: patient History of Present Illness This 68-year-old male comes to the emergency department with complaint of weakness, elevated calcium, chest pain shortness of breath. Patient states that he has had pressure in his chest particularly with exertion. He states that it is worse when he walks up stairs. He also gets short of breath when he goes up flights of stairs. He has felt very weak and collapsed after walking up the stairs earlier in the week. Patient states he saw Dr. Hardik norman who is covering for Dr. collins about 4 5 days ago. They did some blood work and he was told his calcium was quite elevated. He was encouraged to go to the emergency department. He was also given an antibiotic which she states had 10 tablets in his once daily. He was told that they suspected he might have cancer based on his elevated calcium. Patient states he has had any fevers or chills. He felt like when he did have pneumonia in the past. He has not been vomiting, he has been having normal bowel movements. He states he has been losing weight and not able to maintain weight. He has lost about 30 lb in the last month or so. He does have a cough and has not been productive. No swelling in his extremities. Patient had surgery for a bowel obstruction at [facility] about a month ago. He states he had some complications he ended up in the assisted. Was slowly gaining weight and then discharged home. He has some asthma according to him, he continues to smoke tobacco daily. He had hernia repair and a small portion of bowel removed many years ago. He denies any alcohol. Smokes. No medication. Dr. Saldaña is his PCP Related Data Home Medications Medication Instructions Recorded Confirmed Pepto-Bismol Max St 1 dose PO DAILY PRN #0 05/08/17 03/01/19 albuterol sulfate [Ventolin HFA] 1 puff INHALATION Q4H PRN 01/03/19 03/01/19 dupilumab [Dupixent] See Rx Instructions .ROUTE .COMPLEX 01/03/19 03/01/19 clotrimazole 1 lozenge/day PO BID 03/01/19 03/01/19 levofloxacin 1 tab PO DAILY 03/01/19 03/01/19 Previous Rx's Medication Instructions Recorded lorazepam 1 mg tablet 1 mg PO BIDP PRN #60 tab 11/02/18 oxycodone-acetaminophen 5 mg-325 1 tab PO TID PRN #90 tab 02/10/19 mg tablet Allergies Allergy/AdvReac Type Severity Reaction Status Date / Time shrimp [SHRIMP] Allergy Unknown Verified 03/01/19 09:46 Review of Systems Constitutional Denies chills, Denies fever(s), Denies lethargy, Reports poor appetite, Reports weakness and Reports weight loss ENT Ears, Nose, Mouth, and Throat: Denies nasal congestion Cardiovascular Reports chest pain, Reports chest pain with activity, Denies diaphoresis, Denies syncope, Reports lightheadedness, Denies radiating jaw, neck or arm pain, Reports dyspnea (Very mild) and Reports dyspnea on exertion Respiratory Denies chest congestion, Reports cough, Reports dyspnea (Very mild), Reports dyspnea on exertion and Denies wheezing Gastrointestinal Gastrointestinal: Denies abdominal pain, Denies change in bowel habits, Reports early satiety, Denies diarrhea, Denies nausea and Denies vomiting Genitourinary Denies hematuria, Denies flank pain, Denies urinary frequency, Denies urinary incontinence and Denies urinary urgency Musculoskeletal Reports back pain (Chronic) Neurologic Denies abnormal movements, Denies syncope, Denies convulsions, Denies seizure-like activity, Denies tremor(s) and Reports weakness Allergic/Immunologic Denies wheezing [facility] Medical History Renal insufficiency (Chronic) Chronic low back pain (Chronic 07/23/15) Asthma (Chronic Unknown) 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 Father Heart disease Grandfather Influenza Grandmother No problems noted. Mother No problems noted. Grandfather No problems noted. Grandmother No problems noted. Social History Smoking Status: Current every day smoker Family History Brother No problems noted. Father Heart disease Grandfather Influenza Grandmother No problems noted. Mother No problems noted. Grandfather No problems noted. Grandmother No problems noted. Social History (Updated 03/01/19 @ 10:02 by Mireille Gil DO) household members: none Smoking Status: Current every day smoker alcohol intake: never substance use type: marijuana Exam Narrative Exam Narrative: GENERAL: Alert and oriented x three, very thin male, mild distress. Patient seems anxious to be in the department. HEENT: Head normocephalic, atraumatic, EOMI, pupils reactive, face symmetric, moist mucous membranes, patient has a caullflower ear on the left. NECK: Supple, full range of motion CARDIOVASCULAR: Regular rate and rhythm without murmurs, rubs or gallops. JVD. No swelling in extremities. RESPIRATORY: Breath sounds equal bilaterally, no wheezes rales or rhonchi. Mild tachypnea. No accessory muscle use. ABDOMEN: Soft, nontender. Normoactive bowel sounds all 4 quadrants. No guarding or rebound, rigidity, no mass : No CVA tenderness EXTREMITIES: Normal range of motion, no clubbing or edema. Neurovascularly intact NEUROLOGICAL: Cranial nerves II through XII grossly intact. Moving all extremities SKIN: Warm, dry, no petechiae, no rashes or lesions. Initial Vital Signs Initial Vital Signs: Vital Signs Temperature 97.7 F 03/01/19 09:46 Pulse Rate 87 03/01/19 09:46 Respiratory Rate 24 03/01/19 09:46 Blood Pressure 146/101 H 03/01/19 09:46 Pulse Oximetry 100 03/01/19 09:46 Course Orders Ordered: ED Orders 03/01/19 09:47 EKG-12 Lead Routine 03/01/19 09:54 XR chest 1V Stat 03/01/19 10:05 Complete Blood Count AUTO DIFF Stat Comprehensive Metabolic Panel Stat Lipase Stat Magnesium Stat Phosphorous Stat Procalcitonin Stat Troponin & CK Cardiac Panel Stat 03/01/19 10:28 Blood Culture Stat 03/01/19 10:33 Lactate (Lactic Acid) Stat 03/01/19 12:15 Calcium Urine Random Routine 03/01/19 13:13 Urine Microscopic Stat 03/01/19 13:24 CT chest wo con Urgent 03/01/19 13:53 Consult to Dietitian, Adult Routine Consult to Pastoral Services Routine 03/01/19 15:47 Education, smoking cessation ONGOING 03/01/19 15:48 Consult to Dietitian, Adult Routine 03/01/19 15:58 thyroid Urgent 03/01/19 18:07 Ionized Calcium Routine Procalcitonin Routine Protein Electrophoresis, Serum Routine 03/02/19 05:00 Complete Blood Count AUTO DIFF Routine Comprehensive Metabolic Panel Routine Magnesium Routine Thyroid Stimulating Hormone Routine Acetaminophen (Tylenol) 650 mg PO Q6HR PRN PRN Reason: As Needed for Fever/Mild Pain Hydrocodone Bitart/Acetaminophen ([place] 5/325) 1 tab PO Q4HR PRN PRN Reason: Pain, Moderate (4-6) Albuterol/Ipratropium (Duoneb) 3 ml INH [id number] [facility] Bisacodyl (Dulcolax) 10 mg PO DAILY PRN PRN Reason: Constipation Budesonide (Pulmicort Flexhaler) 2 puff INH RTBID [facility] Clotrimazole (Mycelex Tia) 10 mg PO BID [facility] Docusate Sodium (Colace) 100 mg PO BID [facility] Enoxaparin Sodium (Lovenox) 30 mg SUBCUT DAILY [facility] Sodium Chloride (Normal Saline 0.9%) 1,000 mls @ 200 mls/hr IV CONT [facility] Last Admin: 03/01/19 12:59 Dose: 200 mls/hr Levofloxacin (Levaquin) 500 mg in 100 mls @ 100 mls/hr IV Q48H [facility] Last Admin: 03/01/19 18:13 Dose: 100 mls/hr Lorazepam (Ativan) 1 mg PO BID PRN PRN Reason: Anxiety Morphine Sulfate (Morphine) 2 mg IV Q4HR PRN PRN Reason: Pain, Moderate (4-6) Ondansetron HCl (Zofran) 4 mg IV Q8HR PRN PRN Reason: Nausea And Vomiting Oxycodone/Acetaminophen (Percocet 5/325) 1 tab PO TID PRN PRN Reason: pain Discontinued Medications Sodium Chloride (Normal Saline 0.9%) 1,000 mls @ 1,000 mls/hr IV BOLUS ONE Stop: 03/01/19 10:53 Last Infusion: 03/01/19 12:57 Dose: 0 mls/hr Admin: 03/01/19 10:12 Dose: 1,000 mls/hr Levofloxacin (Levaquin) 750 mg in 150 mls @ 100 mls/hr IV Q48H NEO Pamidronate Disodium 60 mg/ (Sodium Chloride) 1,020 mls @ 500 mls/hr IV NOW ONE Stop: 03/01/19 18:01 Last Admin: 03/01/19 18:11 Dose: 500 mls/hr Vital Signs - 8 hr 03/01/19 10:30 03/01/19 11:00 03/01/19 12:56 Temperature Pulse Rate 72 75 82 Respiratory Rate 22 18 25 H Blood Pressure Blood Pressure [Right Arm] 102/76 119/78 132/83 Pulse Oximetry 99 97 03/01/19 14:14 03/01/19 15:35 Temperature 97.6 F 97 F L Pulse Rate 87 79 Respiratory Rate 16 15 Blood Pressure 140/77 120/81 Blood Pressure [Right Arm] Pulse Oximetry 99 97 MDM - SOB/Dyspnea Lab Data Attestation: I reviewed the patient's lab results. Result diagrams: 03/01/19 10:05 03/01/19 10:05 Lab Results 03/01/19 03/01/19 03/01/19 Range/Units 10:05 10:05 10:05 WBC 10.0 (4.5-11.0) X10^3/uL RBC 3.94 L (4.5-5.9) X10^6/uL Hgb 11.8 L (13.5-17.5) g/dL Hct 35.8 L (41-53) % MCV 90.8 (80-100) fL MCH 29.9 (26-34) PG MCHC 32.9 (30-36) % RDW 15.8 H (11.6-14.8) % Plt Count 457 H (150-400) X10^3/uL Neut % (Auto) 50.1 (50-75) % Lymph % (Auto) 36.0 (25-40) % Grant % (Auto) 8.1 (3-14) % Eos % (Auto) 4.8 H (2-4) % Baso % (Auto) 1.0 (0-2) % Neut # (Auto) 5000 (1867-5164) /uL Lymph # (Auto) 3600 (9340-7197) /uL Grant # (Auto) 800 (0-900) /uL Eos # (Auto) 500 H (0-450) /uL Baso # (Auto) 100 (0-100) /uL Sodium 135 L (137-145) mmol/L Potassium 4.7 (3.4-5.1) mmol/L Chloride 96 L (98-107) mmol/L Carbon Dioxide 29 (22-32) mmol/L BUN 50 H (9-20) mg/dL Creatinine 2.40 H (0.66-1.25) mg/dL Estimated GFR 27.1 L (>60) mL/min BUN/Creatinine Ratio 20.8 (6-22) Glucose 83 (80-110) mg/dL Lactate (0.7-2.1) mmol/L Calcium 14.4 H* (8.4-10.2) mg/dL Phosphorus 5.9 H (2.3-3.7) mg/dL Magnesium 1.9 (1.6-2.3) mg/dL Total Bilirubin 0.4 (0.2-1.3) mg/dL AST 32 (17-59) IU/L ALT 18 L (21-72) IU/L Alkaline Phosphatase 92 (38-126) U/L Total Creatine Kinase < 20 L (55-170) U/L CK-MB (CK-2) TNP CK-MB (CK-2) Rel Index TNP Troponin I < 0.012 (0.01-0.034) ng/mL Total Protein 8.2 (6.3-8.2) g/dL Albumin 3.9 (3.5-5.0) g/dL Globulin 4.3 H (1.7-4.1) g/dL Albumin/Globulin Ratio 0.9 L (1.0-2.8) Lipase 18 L (23-300) U/L Procalcitonin (<0.5) ng/mL Urine RBC (0-5/HPF) Urine WBC (0-5/HPF) Ur Squamous Epith Cells (0-5/HPF) Calcium Oxalate Crystal Urine Bacteria (None) Hyaline Casts (None) Ur Culture Indicated? 03/01/19 03/01/19 03/01/19 Range/Units 10:05 10:33 13:13 WBC (4.5-11.0) X10^3/uL RBC (4.5-5.9) X10^6/uL Hgb (13.5-17.5) g/dL Hct (41-53) % MCV (80-100) fL MCH (26-34) PG MCHC (30-36) % RDW (11.6-14.8) % Plt Count (150-400) X10^3/uL Neut % (Auto) (50-75) % Lymph % (Auto) (25-40) % Grant % (Auto) (3-14) % Eos % (Auto) (2-4) % Baso % (Auto) (0-2) % Neut # (Auto) (7057-1257) /uL Lymph # (Auto) (7914-1828) /uL Grant # (Auto) (0-900) /uL Eos # (Auto) (0-450) /uL Baso # (Auto) (0-100) /uL Sodium (137-145) mmol/L Potassium (3.4-5.1) mmol/L Chloride (98-107) mmol/L Carbon Dioxide (22-32) mmol/L BUN (9-20) mg/dL Creatinine (0.66-1.25) mg/dL Estimated GFR (>60) mL/min BUN/Creatinine Ratio (6-22) Glucose (80-110) mg/dL Lactate 1.2 (0.7-2.1) mmol/L Calcium (8.4-10.2) mg/dL Phosphorus (2.3-3.7) mg/dL Magnesium (1.6-2.3) mg/dL Total Bilirubin (0.2-1.3) mg/dL AST (17-59) IU/L ALT (21-72) IU/L Alkaline Phosphatase (38-126) U/L Total Creatine Kinase (55-170) U/L CK-MB (CK-2) CK-MB (CK-2) Rel Index Troponin I (0.01-0.034) ng/mL Total Protein (6.3-8.2) g/dL Albumin (3.5-5.0) g/dL Globulin (1.7-4.1) g/dL Albumin/Globulin Ratio (1.0-2.8) Lipase (23-300) U/L Procalcitonin 0.12 (<0.5) ng/mL Urine RBC 1-5/hpf (0-5/HPF) Urine WBC 1-5/hpf (0-5/HPF) Ur Squamous Epith Cells 0-1 /hpf (0-5/HPF) Calcium Oxalate Crystal Moderate H Urine Bacteria Occasional (0-1) (None) Hyaline Casts 5-10/lpf (None) Ur Culture Indicated? Cult not indicated Urine Dip Bedside Urine Glucose Negative Bedside Urine Bilirubin - Negative Bedside Urine Ketone - Negative Urine Specific [place] 1.020 Bedside Urine Occult Blood - Negative Bedside Urine pH 6.5 Bedside Urine Protein +/- 15 Bedside Urine Urobilinogen - Negative Bedside Urine Nitrite - Negative Bedside Urine Leukocytes - Negative Esterase Imaging Data Chest x-ray: Attestation: I personally reviewed and interpreted this imaging study as follows: Radiologist's impression: [address] [address] XRay Report Signed Patient: Arthur Quinteros [facility]#: [id number] : [id number]:[id number] Age/Sex: 68 / MDate of Service: 03/01/19 Loc: ED Accession Number: [id number] Procedure: XR chest 1V Ordering Provider: Mireille Gil D.O. PROCEDURE: XR CHEST 1V INDICATIONS: chest pain, weakness, tob abuse, told elevated ca TECHNIQUE: One view of the chest was acquired. COMPARISON: [facility], CT, CT ANGIO CHEST PE, 01/14/2019, 15:01. [facility], CR, XR CHEST 1 VIEW, 01/18/2019, 10:07. FINDINGS: Surgical changes and devices: None. Lungs and pleura: There is shallow lungs is similar to the prior study with mild pulmonary consolidation identified within the right mid lung and a possible scattered areas of mild pulmonary consolidation along the lateral margin of the left lung. Mediastinum: Mediastinal contours appear normal. Heart size is normal. Bones and chest wall: No suspicious bony lesions. Calcific tendinitis of the left shoulder appears to be present. Overlying soft tissues appear unremarkable. IMPRESSION: Patchy airspace disease within the lungs is similar to the previous examination, suspicious for pneumonia. Superimposed chronic lung changes probably are present. The possibility of a right hilar lesion is difficult to exclude. Dictated by: Dioni Zamarripa M.D. on 03/01/2019 at 9:32 Approved by: Dioni Zamarripa M.D. on 03/01/2019 at 9:35 ECG Data Attestation: I personally reviewed and interpreted this ECG as follows: Prior ECG tracings: available for review Interpretation: Sinus rhythm with a rate 84 P are 202 QRS of 94 and QTC of [address] depression or elevation. ST segments particular 2 3 in AVF appears similar to prior from 03/16/2016 and 04/19/2015. MDM Narrative Medical decision making narrative: Patient's QT interval to be a little bit shortened that would be consistent with hypercalcemia. Lab work shows anemia acute on chronic renal failure, hypercalcemia with hyperphosphatemia. Patient's troponin is negative. EKG does not show any major acute changes. Patient has chest x-ray that shows possible pneumonia although mass cannot be excluded. Patient states he has been urinating regularly. Initially patient treated with fluids, patient states he feels better after his 1st L he is receiving a 2nd. At 200 cc/hour. I spoke with Dr. Gómez who accepts. She did ask for CT, was ordered without contrast, she will follow up with the results of the CT. 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 Discharge Plan Departure Patient Disposition: Admitted as Observation Clinical Impression: Hypercalcemia, Hyperphosphatemia, Weakness, Acute kidney injury Discharge Date/Time: 03/01/19 12:40 Interventions: ED Discharge Assessment Last Done: 03/01/19 14:47 Referrals: Jama Pruett MD [Primary Care Provider] - Admit Date/Time: 03/01/19 12:40 Admit Provider: Giuliana Gómez
--- NOTE | 2019-03-01 10:06 | ED_ITS ---
HPI - SOB/Dyspnea General Chief Complaint: Shortness of Breath/Dyspnea Stated Complaint: Sent by doctor. Blood is not right Time Seen by Provider: 03/01/19 09:43 Source: patient History of Present Illness This 68-year-old male comes to the emergency department with complaint of weakness, elevated calcium, chest pain shortness of breath. Patient states that he has had pressure in his chest particularly with exertion. He states that it is worse when he walks up stairs. He also gets short of breath when he goes up flights of stairs. He has felt very weak and collapsed after walking up the stairs earlier in the week. Patient states he saw Dr. Hardik norman who is covering for Dr. collins about 4 5 days ago. They did some blood work and he was told his calcium was quite elevated. He was encouraged to go to the emergency department. He was also given an antibiotic which she states had 10 tablets in his once daily. He was told that they suspected he might have cancer based on his elevated calcium. Patient states he has had any fevers or chills. He felt like when he did have pneumonia in the past. He has not been vomiting, he has been having normal bowel movements. He states he has been losing weight and not able to maintain weight. He has lost about 30 lb in the last month or so. He does have a cough and has not been productive. No swelling in his extremities. Patient had surgery for a bowel obstruction at [facility] about a month ago. He states he had some complications he ended up in the [facility]. Was slowly gaining weight and then discharged home. He has some asthma according to him, he continues to smoke tobacco daily. He had hernia repair and a small portion of bowel removed many years ago. He denies any alcohol. Smokes. No medication. Dr. Saldaña is his PCP Related Data Home Medications Medication Instructions Recorded Confirmed Pepto-Bismol Max St 1 dose PO DAILY PRN #0 05/08/17 03/01/19 albuterol sulfate [Ventolin HFA] 1 puff INHALATION Q4H PRN 01/03/19 03/01/19 dupilumab [Dupixent] See Rx Instructions .ROUTE .COMPLEX 01/03/19 03/01/19 clotrimazole 1 lozenge/day PO BID 03/01/19 03/01/19 levofloxacin 1 tab PO DAILY 03/01/19 03/01/19 Previous Rx's Medication Instructions Recorded lorazepam 1 mg tablet 1 mg PO BIDP PRN #60 tab 11/02/18 oxycodone-acetaminophen 5 mg-325 1 tab PO TID PRN #90 tab 02/10/19 mg tablet Allergies Allergy/AdvReac Type Severity Reaction Status Date / Time shrimp [SHRIMP] Allergy Unknown Verified 03/01/19 09:46 Review of Systems Constitutional Denies chills, Denies fever(s), Denies lethargy, Reports poor appetite, Reports weakness and Reports weight loss ENT Ears, Nose, Mouth, and Throat: Denies nasal congestion Cardiovascular Reports chest pain, Reports chest pain with activity, Denies diaphoresis, Denies syncope, Reports lightheadedness, Denies radiating jaw, neck or arm pain, Reports dyspnea (Very mild) and Reports dyspnea on exertion Respiratory Denies chest congestion, Reports cough, Reports dyspnea (Very mild), Reports d yspnea on exertion and Denies wheezing Gastrointestinal Gastrointestinal: Denies abdominal pain, Denies change in bowel habits, Reports early satiety, Denies diarrhea, Denies nausea and Denies vomiting Genitourinary Denies hematuria, Denies flank pain, Denies urinary frequency, Denies urinary incontinence and Denies urinary urgency Musculoskeletal Reports back pain (Chronic) Neurologic Denies abnormal movements, Denies syncope, Denies convulsions, Denies seizure-l ting activity, Denies tremor(s) and Reports weakness Allergic/Immunologic Denies wheezing [facility] Medical History Renal insufficiency (Chronic) Chronic low back pain (Chronic 07/23/15) Asthma (Chronic Unknown) 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 Father Heart disease Grandfather Influenza Grandmother No problems noted. Mother No problems noted. Grandfather No problems noted. Grandmother No problems noted. Social History Smoking Status: Current every day smoker Family History Brother No problems noted. Father Heart disease Grandfather Influenza Grandmother No problems noted. Mother No problems noted. Grandfather No problems noted. Grandmother No problems noted. Social History (Updated 03/01/19 @ 10:02 by Mireille Gil DO) household members: none Smoking Status: Current every day smoker alcohol intake: never substance use type: marijuana Exam Narrative Exam Narrative: GENERAL: Alert and oriented x three, very thin male, mild distress. Patient seems anxious to be in the department. HEENT: Head normocephalic, atraumatic, EOMI, pupils reactive, face symmetric, moist mucous membranes, patient has a caullflower ear on the left. NECK: Supple, full range of motion CARDIOVASCULAR: Regular rate and rhythm without murmurs, rubs or gallops. JVD. No swelling in extremities. RESPIRATORY: Breath sounds equal bilaterally, no wheezes rales or rhonchi. Mild tachypnea. No accessory muscle use. ABDOMEN: Soft, nontender. Normoactive bowel sounds all 4 quadrants. No guarding or rebound, rigidity, no mass : No CVA tenderness EXTREMITIES: Normal range of motion, no clubbing or edema. Neurovascularly intact NEUROLOGICAL: Cranial nerves II through XII grossly intact. Moving all extremities SKIN: Warm, dry, no petechiae, no rashes or lesions. Initial Vital Signs Initial Vital Signs: Vital Signs Temperature 97.7 F 03/01/19 09:46 Pulse Rate 87 03/01/19 09:46 Respiratory Rate 24 03/01/19 09:46 Blood Pressure 146/101 H 03/01/19 09:46 Pulse Oximetry 100 03/01/19 09:46 Course Orders Ordered: ED Orders 03/01/19 09:47 EKG-12 Lead Routine 03/01/19 09:54 XR chest 1V Stat 03/01/19 10:05 Complete Blood Count AUTO DIFF Stat Comprehensive Metabolic Panel Stat Lipase Stat Magnesium Stat Phosphorous Stat Procalcitonin Stat Troponin & CK Cardiac Panel Stat 03/01/19 10:28 Blood Culture Stat 03/01/19 10:33 Lactate (Lactic Acid) Stat 03/01/19 12:15 Calcium Urine Random Routine 03/01/19 13:13 Urine Microscopic Stat 03/01/19 13:24 CT chest wo con Urgent 03/01/19 13:53 Consult to Dietitian, Adult Routine Consult to Pastoral Services Routine 03/01/19 15:47 Education, smoking cessation ONGOING 03/01/19 15:48 Consult to Dietitian, Adult Routine 03/01/19 15:58 thyroid Urgent 03/01/19 18:07 Ionized Calcium Routine Procalcitonin Routine Protein Electrophoresis, Serum Routine 03/02/19 05:00 Complete Blood Count AUTO DIFF Routine Comprehensive Metabolic Panel Routine Magnesium Routine Thyroid Stimulating Hormone Routine Acetaminophen (Tylenol) 650 mg PO Q6HR PRN PRN Reason: As Needed for Fever/Mild Pain Hydrocodone Bitart/Acetaminophen (Proctor 5/325) 1 tab PO Q4HR PRN PRN Reason: Pain, Moderate (4-6) Albuterol/Ipratropium (Duoneb) 3 ml INH [id number] [facility] Bisacodyl (Dulcolax) 10 mg PO DAILY PRN PRN Reason: Constipation Budesonide (Pulmicort Flexhaler) 2 puff INH RTBID [facility] Clotrimazole (Mycelex Tia) 10 mg PO BID [facility] Docusate Sodium (Colace) 100 mg PO BID [facility] Enoxaparin Sodium (Lovenox) 30 mg SUBCUT DAILY [facility] Sodium Chloride (Normal Saline 0.9%) 1,000 mls @ 200 mls/hr IV CONT [facility] Last Admin: 03/01/19 12:59 Dose: 200 mls/hr Levofloxacin (Levaquin) 500 mg in 100 mls @ 100 mls/hr IV Q48H [facility] Last Admin: 03/01/19 18:13 Dose: 100 mls/hr Lorazepam (Ativan) 1 mg PO BID PRN PRN Reason: Anxiety Morphine Sulfate (Morphine) 2 mg IV Q4HR PRN PRN Reason: Pain, Moderate (4-6) Ondansetron HCl (Zofran) 4 mg IV Q8HR PRN PRN Reason: Nausea And Vomiting Oxycodone/Acetaminophen (Percocet 5/325) 1 tab PO TID PRN PRN Reason: pain Discontinued Medications Sodium Chloride (Normal Saline 0.9%) 1,000 mls @ 1,000 mls/hr IV BOLUS ONE Stop: 03/01/19 10:53 Last Infusion: 03/01/19 12:57 Dose: 0 mls/hr Admin: 03/01/19 10:12 Dose: 1,000 mls/hr Levofloxacin (Levaquin) 750 mg in 150 mls @ 100 mls/hr IV Q48H NEO Pamidronate Disodium 60 mg/ (Sodium Chloride) 1,020 mls @ 500 mls/hr IV NOW ONE Stop: 03/01/19 18:01 Last Admin: 03/01/19 18:11 Dose: 500 mls/hr Vital Signs - 8 hr 03/01/19 10:30 03/01/19 11:00 03/01/19 12:56 Temperature Pulse Rate 72 75 82 Respiratory Rate 22 18 25 H Blood Pressure Blood Pressure [Right Arm] 102/76 119/78 132/83 Pulse Oximetry 99 97 03/01/19 14:14 03/01/19 15:35 Temperature 97.6 F 97 F L Pulse Rate 87 79 Respiratory Rate 16 15 Blood Pressure 140/77 120/81 Blood Pressure [Right Arm] Pulse Oximetry 99 97 MDM - SOB/Dyspnea Lab Data Attestation: I reviewed the patient's lab results. Result diagrams: 03/01/19 10:05 03/01/19 10:05 Lab Results 03/01/19 03/01/19 03/01/19 Range/Units 10:05 10:05 10:05 WBC 10.0 (4.5-11.0) X10^3/uL RBC 3.94 L (4.5-5.9) X10^6/uL Hgb 11.8 L (13.5-17.5) g/dL Hct 35.8 L (41-53) % MCV 90.8 (80-100) fL MCH 29.9 (26-34) PG MCHC 32.9 (30-36) % RDW 15.8 H (11.6-14.8) % Plt Count 457 H (150-400) X10^3/uL Neut % (Auto) 50.1 (50-75) % Lymph % (Auto) 36.0 (25-40) % [place] % (Auto) 8.1 (3-14) % Eos % (Auto) 4.8 H (2-4) % Baso % (Auto) 1.0 (0-2) % Neut # (Auto) 5000 (9385-0438) /uL Lymph # (Auto) 3600 (2530-2288) /uL [place] # (Auto) 800 (0-900) /uL Eos # (Auto) 500 H (0-450) /uL Baso # (Auto) 100 (0-100) /uL Sodium 135 L (137-145) mmol/L Potassium 4.7 (3.4-5.1) mmol/L Chloride 96 L (98-107) mmol/L Carbon Dioxide 29 (22-32) mmol/L BUN 50 H (9-20) mg/dL Creatinine 2.40 H (0.66-1.25) mg/dL Estimated GFR 27.1 L (>60) mL/min BUN/Creatinine Ratio 20.8 (6-22) Glucose 83 (80-110) mg/dL Lactate (0.7-2.1) mmol/L Calcium 14.4 H* (8.4-10.2) mg/dL Phosphorus 5.9 H (2.3-3.7) mg/dL Magnesium 1.9 (1.6-2.3) mg/dL Total Bilirubin 0.4 (0.2-1.3) mg/dL AST 32 (17-59) IU/L ALT 18 L (21-72) IU/L Alkaline Phosphatase 92 (38-126) U/L Total Creatine Kinase < 20 L (55-170) U/L CK-MB (CK-2) TNP CK-MB (CK-2) Rel Index TNP Troponin I < 0.012 (0.01-0.034) ng/mL Total Protein 8.2 (6.3-8.2) g/dL Albumin 3.9 (3.5-5.0) g/dL Globulin 4.3 H (1.7-4.1) g/dL Albumin/Globulin Ratio 0.9 L (1.0-2.8) Lipase 18 L (23-300) U/L Procalcitonin (<0.5) ng/mL Urine RBC (0-5/HPF) Urine WBC (0-5/HPF) Ur Squamous Epith Cells (0-5/HPF) Calcium Oxalate Crystal Urine Bacteria (None) Hyaline Casts (None) Ur Culture Indicated? 03/01/19 03/01/19 03/01/19 Range/Units 10:05 10:33 13:13 WBC (4.5-11.0) X10^3/uL RBC (4.5-5.9) X10^6/uL Hgb (13.5-17.5) g/dL Hct (41-53) % MCV (80-100) fL MCH (26-34) PG MCHC (30-36) % RDW (11.6-14.8) % Plt Count (150-400) X10^3/uL Neut % (Auto) (50-75) % Lymph % (Auto) (25-40) % Ventura % (Auto) (3-14) % Eos % (Auto) (2-4) % Baso % (Auto) (0-2) % Neut # (Auto) (5230-9309) /uL Lymph # (Auto) (2472-7796) /uL [place]ura # (Auto) (0-900) /uL Eos # (Auto) (0-450) /uL Baso # (Auto) (0-100) /uL Sodium (137-145) mmol/L Potassium (3.4-5.1) mmol/L Chloride (98-107) mmol/L Carbon Dioxide (22-32) mmol/L BUN (9-20) mg/dL Creatinine (0.66-1.25) mg/dL Estimated GFR (>60) mL/min BUN/Creatinine Ratio (6-22) Glucose (80-110) mg/dL Lactate 1.2 (0.7-2.1) mmol/L Calcium (8.4-10.2) mg/dL Phosphorus (2.3-3.7) mg/dL Magnesium (1.6-2.3) mg/dL Total Bilirubin (0.2-1.3) mg/dL AST (17-59) IU/L ALT (21-72) IU/L Alkaline Phosphatase (38-126) U/L Total Creatine Kinase (55-170) U/L CK-MB (CK-2) CK-MB (CK-2) Rel Index Troponin I (0.01-0.034) ng/mL Total Protein (6.3-8.2) g/dL Albumin (3.5-5.0) g/dL Globulin (1.7-4.1) g/dL Albumin/Globulin Ratio (1.0-2.8) Lipase (23-300) U/L Procalcitonin 0.12 (<0.5) ng/mL Urine RBC 1-5/hpf (0-5/HPF) Urine WBC 1-5/hpf (0-5/HPF) Ur Squamous Epith Cells 0-1 /hpf (0-5/HPF) Calcium Oxalate Crystal Moderate H Urine Bacteria Occasional (0-1) (None) Hyaline Casts 5-10/lpf (None) Ur Culture Indicated? Cult not indicated Urine Dip Bedside Urine Glucose Negative Bedside Urine Bilirubin - Negative Bedside Urine Ketone - Negative Urine Specific [place] 1.020 Bedside Urine Occult Blood - Negative Bedside Urine pH 6.5 Bedside Urine Protein +/- 15 Bedside Urine Urobilinogen - Negative Bedside Urine Nitrite - Negative Bedside Urine Leukocytes - Negative Esterase Imaging Data Chest x-ray: Attestation: I personally reviewed and interpreted this imaging study as f deb: Radiologist's impression: [address] [address] XRay Report Signed Patient: Arthur Quinteros [facility]#: [id number] : 1950cct:[id number] Age/Sex: 68 / MDate of Service: 03/01/19 Loc: ED Accession Number: [id number] Procedure: XR chest 1V Ordering Provider: Mireille Gil D.O. PROCEDURE: XR CHEST 1V INDICATIONS: chest pain, weakness, tob abuse, told elevated ca TECHNIQUE: One view of the chest was acquired. COMPARISON: [facility], CT, CT ANGIO CHEST PE, 01/14/2019, 15:01. [facility], CR, XR CHEST 1 VIEW, 01/18/2019, 10:07. FINDINGS: Surgical changes and devices: None. Lungs and pleura: There is shallow lungs is similar to the prior study with mild pulmonary consolidation identified within the right mid lung and a possible scattered areas of mild pulmonary consolidation along the lateral margin of the left lung. Mediastinum: Mediastinal contours appear normal. Heart size is normal. Bones and chest wall: No suspicious bony lesions. Calcific tendinitis of the left shoulder appears to be present. Overlying soft tissues appear unremarkable. IMPRESSION: Patchy airspace disease within the lungs is similar to the previous examination, suspicious for pneumonia. Superimposed chronic lung changes probably are present. The possibility of a right hilar lesion is difficult to exclude. Dictated by: Dioni Zamarripa M.D. on 03/01/2019 at 9:32 Approved by: Dioni Zamarripa M.D. on 03/01/2019 at 9:35 ECG Data Attestation: I personally reviewed and interpreted this ECG as follows: Prior ECG tracings: available for review Interpretation: Sinus rhythm with a rate 84 P are 202 QRS of 94 and QTC of [address] depression or elevation. ST segments particular 2 3 in AVF appears similar to prior from 03/16/2016 and 04/19/2015. MDM Narrative Medical decision making narrative: Patient's QT interval to be a little bit shortened that would be consistent with hypercalcemia. Lab work shows anemia acute on chronic renal failure, hypercalcemia with hyperphosphatemia. Patient's troponin is negative. EKG does not show any major acute changes. Patient has chest x-ray that shows possible pneumonia although mass cannot be excluded. Patient states he has been urinating regularly. Initially patient treated with fluids, patient states he feels better after his 1st L he is receiving a 2nd. At 200 cc/hour. I spoke with Dr. Gómez who accepts. She did ask for CT, was ordered without contrast, she will follow up with the results of the CT. 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 Discharge Plan Departure Patient Disposition: Admitted as Observation Clinical Impression: Hypercalcemia, Hyperphosphatemia, Weakness, Acute kidney injury Discharge Date/Time: 03/01/19 12:40 Interventions: ED Discharge Assessment Last Done: 03/01/19 14:47 Referrals: Jama Pruett MD [Primary Care Provider] - Admit Date/Time: 03/01/19 12:40 Admit Provider: Giuliana Gómez
[2019-03-01] MEDS: SODIUM CHLORIDE 0.9% 1,000 ML 1000 ML IV (10:12)
[2019-03-01 10:30] LABS: Add Manual Diff / Slide Review NO; Basophils Absolute Auto 100 /uL (0-100); Eosinophils Absolute Auto 500 /uL (0-450); Eosinophils Percent Auto 4.8 % (2-4); Hematocrit 35.8 % (41-53); Hemoglobin 11.8 g/dL (13.5-17.5); Lymphocytes Absolute Auto 3600 /uL (1100-4500); Mean Corpuscular HGB Conc 32.9 % (30-36); Mean Corpuscular Hemoglobin 29.9 PG (26-34); Mean Corpuscular Volume 90.8 fL (80-100); Monocytes Absolute Auto 800 /uL (0-900); Monocytes Percent Auto 8.1 % (3-14); Neutrophils Absolute Auto 5000 /uL (1500-7000); Neutrophils Percent Auto 50.1 % (50-75); Platelet Count 457 X10^3/uL (150-400); Red Blood Cell Count 3.94 X10^6/uL (4.5-5.9); Red Cell Distribution Width 15.8 % (11.6-14.8)
[2019-03-01 10:51] LABS: Alanine Aminotransferase 18 IU/L (21-72); Albumin 3.9 g/dL (3.5-5.0); Albumin Globulin Ratio 0.9 (1.0-2.8); Alkaline Phosphatase 92 U/L (38-126); Aspartate Aminotransferase 32 IU/L (17-59); BUN Creatinine Ratio 20.8 (6-22); Bilirubin Total 0.4 mg/dL (0.2-1.3); Blood Urea Nitrogen 50 mg/dL (9-20); Carbon Dioxide 29 mmol/L (22-32); Chloride 96 mmol/L (98-107); Creatine Kinase < 20 U/L (55-170); Estimated Glomerular Filt Rate 27.1 mL/min (>60); Globulin 4.3 g/dL (1.7-4.1); Glucose 83 mg/dL (80-110); Lipase 18 U/L (23-300); Potassium 4.7 mmol/L (3.4-5.1); Sodium 135 mmol/L (137-145); Total Protein 8.2 g/dL (6.3-8.2)
[2019-03-01 10:52] LABS: Magnesium 1.9 mg/dL (1.6-2.3); Phosphorous 5.9 mg/dL (2.3-3.7)
[2019-03-01 10:59] LABS: Lactate (Lactic Acid) 1.2 mmol/L (0.7-2.1)
[2019-03-01 11:09] LABS: HEMOLYSIS 22 (0-50)
[2019-03-01 11:10] LABS: Procalcitonin 0.12 ng/mL (<0.5)
[2019-03-01 11:20] LABS: Calcium 14.4 mg/dL (8.4-10.2)
[2019-03-01 11:28] LABS: Troponin I < 0.012 ng/mL (0.01-0.034)
[2019-03-01] MEDS: SODIUM CHLORIDE 0.9% 1,000 ML 200 ML IV ×2 (12:59→21:47)
--- NOTE | 2019-03-01 13:24 | DI.CT.S_ITS ---
PROCEDURE: CT CHEST WO CON INDICATIONS: concern for cancer, hypercalcemia TECHNIQUE: Noncontrast 5 mm thick sections acquired from the pulmonary apices to the posterior costophrenic angles. 7 mm thick coronal and sagittal MIP reformats were then acquired. For radiation dose reduction, the following was used: automated exposure control, adjustment of mA and/or kV according to patient size. COMPARISON: [facility], CT, THORAX WITH CONTRAST, 03/17/2016, 14:10. [facility], CT, CT ANGIO CHEST PE, 01/14/2019, 15:01. [facility], CR, XR CHEST 1V, 03/01/2019, 10:00. FINDINGS: Image quality: Excellent. Lungs and pleura: Multifocal patchy alveolar opacities, peribronchial consolidation in the right upper lobe laterally, and small patchy parenchymal opacity in the anterolateral lingula, and to lesser extent scattered in the left lower lobe. Findings are superimposed on moderate emphysema. Subpleural focal consolidation is present in the superior segment right lower lobe, and contains at least 2 small irregular air cavities. Trace cavitation of the lateral lingular patchy consolidation is also seen. There is cystic bronchiectasis developing in the right upper lobe and mildly in the left upper lobe. Interval resolution of bilateral pleural effusions. Mediastinum: Heart size is normal. No pericardial effusion. Mild coronary calcification. No mediastinal adenopathy by size criteria. Thoracic aorta and central pulmonary arteries are normal in size. Esophagus is normal in caliber. No hiatal hernia. Bones and chest wall: No suspicious bony lesions. No vertebral body compression fractures. Minimally prominent bilateral axillary lymph nodes. No supraclavicular adenopathy by size criteria. Thyroid gland is normal. Abdomen: Visualized upper abdominal solid organs and bowel loops appear normal in the absence of contrast. IMPRESSION: 1. Multifocal patchy alveolar opacities, and interval development of superior segment right lower lobe consolidation. The presence of cavitation in this consolidation and lingular parenchymal process raises possibility of septic embolus although squamous cell carcinoma is also not excluded. 2. Peribronchial consolidation in the right upper lobe is chronic and there is developing accompanying bronchiectasis. Chronic inflammatory processes such as atypical infection, cryptogenic organized pneumonia, sarcoid, and drug reactions, etc. should be considered. 3. Interval resolution of bilateral pleural effusions and decreased size of a few left lower lobe lung nodules. 4. Findings superimposed on moderate emphysema. 5. Mild bilateral axillary adenopathy, nonspecific. No other adenopathy in the chest. Dictated by: Scarlet Maier M.D. on 03/01/2019 at 14:19 Approved by: Scarlet Maier M.D. on 03/01/2019 at 14:32
--- NOTE | 2019-03-01 14:09 | PC.ADMIT ---
[address] Admission Note: The patient,Arthur Quinteros,68 y/o, was given written information regarding hospital policies, unit procedures and contact persons. Patient's smoking status: Current every day smoker. Vital Signs - 8 hr 03/01/19 09:46 03/01/19 10:15 03/01/19 10:30 Temperature 97.7 F Pulse Rate 87 75 72 Respiratory Rate 24 16 22 Blood Pressure 146/101 H Blood Pressure [Right Arm] 100/71 102/76 Pulse Oximetry 100 98 99 03/01/19 11:00 03/01/19 12:56 Temperature Pulse Rate 75 82 Respiratory Rate 18 25 H Blood Pressure Blood Pressure [Right Arm] 119/78 132/83 Pulse Oximetry 97 PATIENT ORIENTED TO . REPORTS HE FEELS FINE AFTER THE IVF IN THE ER. PATIENT'S OVERALL APPEARANCE IS CACHECTIC. HE ADMITS TO SIGNIFICANT WT LOSS SINCE HIS ABD SURGERY APPROX 1-2 MO AGO. HE HAS A SM HEALING COCCYX WOUND WITH SM WHITE SCAB, OTHERWISE INTACT AND DRY WITH MILD ERYTHEMA. STATES HE HAD THAT HIS LAST HOSPITALIZATION AND IT WAS LARGER AND IS HEALING WELL. RE-INFORCED NEED TO CHANGE POSITION IN BED FREQ. HE IS STRONG, STEADY ON FEET, AND FREELY MOBILE IN BED. HE LIVES ALONE IN AN APARTMENT. IVF RUNNING AT 200CC'S PER ORDER. TELE AND CONT PULSE OX IN PLACE. CALL LIGHT IN REACH, INSTRUCTED TO CALL FOR NEEDS.
[2019-03-01 15:10] LABS: Bacteria Urine Occasional (0-1); Calcium Oxalate Crystals Urine Moderate; Culture Indicated Urine Cult Not Indicated; Hyaline Casts Urine 5-10/LPF; RBC Urine 1-5/HPF (0-5/HPF); Squamous Epithelial Cell Urine 0-1 /HPF (0-5/HPF); WBC Urine 1-5/HPF (0-5/HPF)
--- NOTE | 2019-03-01 15:58 | DI.US.S_ITS ---
PROCEDURE: US THYROID INDICATIONS: ENLARGED THYROID GLAND TECHNIQUE: Real-time scanning was performed of the thyroid gland, with image documentation. COMPARISON: None. FINDINGS: Right: Thyroid lobe measures 3.5 x 1.2 x 1.3 cm, and is homogeneous in echotexture. Left: Thyroid lobe measures 3.5 x 1.3 x 1.6 cm, and is homogenous in echotexture. Isthmus: 2 mm thick. No adjacent lymphadenopathy or suspicious soft tissue mass. IMPRESSION: Normal thyroid gland. Dictated by: Scarlet Maier M.D. on 03/01/2019 at 19:01 Approved by: Scarlet Maier M.D. on 03/01/2019 at 19:02
--- NOTE | 2019-03-01 16:16 | P.HP_ITS ---
History of Present Illness Date Patient Seen: 03/01/19 Chief complaint: Sent by doctor. Blood is not right Narrative: The patient is a 68-year-old male with a history of COPD, hypertension, psoriasis GERD renal insufficiency and chronic back pain who was seen by his PCP about 5-6 days ago. Patient was found to be hypercalcemic. He was also treated for pneumonia. The patient took antibiotics hoping that within a few days he would not require treatment. His PCP sent him to the hospital for inpatient treatment. The patient reports today he complained of pain in his bones feeling ill and presented to the emergency room for evaluation. In the emergency room he was found to be hypercalcemic. His calcium level was 14. The patient notes he has lost about 30 lb over the past several months. One month ago he underwent a hernia repair which was complicated by bowel obstruction requiring surgery he was ultimately transferred to [facility] and most recently back home. The patient states during the surgical time he lost some weight. Since then he was feeling better until most recently. He denies any fever chills or shortness of breath. He uses an inhaler intermittently. He denies any cough. He has had no hemoptysis. He denies any night sweats or fevers. He has had some pain in his chest and back which is chronic. No nausea vomiting or diarrhea. No dysuria hematuria or pyuria. No swelling in his ankles, no orthopnea. The patient was evaluated in the emergency department. He underwent a CT of the chest. CT was concerning for multiple alveolar infiltrates. There were cavitary lesions suggestive of either infiltrate but could not rule out squamous cell carcinoma. 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 2013) COPD (chronic obstructive pulmonary disease) (Chronic Unknown) Chronic back pain (Chronic 2005) Chronic kidney disease (CKD) (Chronic Unknown) Dermatitis (Chronic Unknown) Eczema (Chronic 1999) GERD (gastroesophageal reflux disease) (Chronic Unknown) Hypercalcemia (Chronic Unknown) Hypertension (Chronic Unknown) Pancreatitis (Chronic Unknown) Psoriasis (Chronic 1999) Chickenpox (Resolved 1960) Hx SBO (Resolved ~2009) Measles (Resolved 1959) Mumps (Resolved 1963) Surgical History S/P hernia repair (Acute) S/P small bowel resection (Resolved ~2009) Family History Brother No problems noted. Father Heart disease Grandfather Influenza Grandmother No problems noted. Mother No problems noted. Grandfather No problems noted. Grandmother No problems noted. Social History Smoking Status: Current every day smoker Family & Social History Family History Brother No problems noted. Father Heart disease Grandfather Influenza Grandmother No problems noted. Mother No problems noted. Grandfather No problems noted. Grandmother No problems noted. Social History: household members none Prior Living Arrangements Apartment/Condo Safety & Behavioral: Feels Safe in Current Yes Environment Been Physically Hurt or No Threatened By a Person Suicidal Ideation Description None Suicide Plan Description No Plan Tobacco & Substance use: Smoking Status Current every day smoker Smoking packs per day 0.5 alcohol intake never alcohol intake frequency holiday/special occasion Substance Use Type marijuana Meds Home Medications Medication Instructions Recorded Confirmed Type Pepto-Bismol Max St 1 dose PO DAILY PRN #0 05/08/17 03/01/19 History lorazepam 1 mg tablet 1 mg PO BIDP PRN #60 tab 11/02/18 03/01/19 Rx albuterol sulfate [Ventolin HFA] 1 puff INHALATION Q4H PRN 01/03/19 03/01/19 History dupilumab [Dupixent] See Rx Instructions .ROUTE .COMPLEX 01/03/19 03/01/19 History oxycodone-acetaminophen 5 mg-325 1 tab PO TID PRN #90 tab 02/10/19 03/01/19 Rx mg tablet clotrimazole 1 lozenge/day PO BID 03/01/19 03/01/19 History levofloxacin 1 tab PO DAILY 03/01/19 03/01/19 History Allergies Allergy/AdvReac Type Severity Reaction Status Date / Time shrimp [SHRIMP] Allergy Unknown Verified 06/04/19 09:46 Review of Systems Review of Systems All systems reviewed & are unremarkable except as noted in HPI and below Exam Vital Signs (past 8 hours): - 03/01/19 09:46 03/01/19 10:15 03/01/19 10:30 Temperature 97.7 F Pulse Rate 87 75 72 Respiratory Rate 24 16 22 Blood Pressure 146/101 H Blood Pressure [Right Arm] 100/71 102/76 Pulse Oximetry 100 98 99 03/01/19 11:00 03/01/19 12:56 03/01/19 14:14 Temperature 97.6 F Pulse Rate 75 82 87 Respiratory Rate 18 25 H 16 Blood Pressure 140/77 Blood Pressure [Right Arm] 119/78 132/83 Pulse Oximetry 97 99 03/01/19 15:35 Temperature 97 F L Pulse Rate 79 Respiratory Rate 15 Blood Pressure 120/81 Blood Pressure [Right Arm] Pulse Oximetry 97 Oxygen Delivery Method Room Air Narrative Exam Narrative: Ill-appearing cachectic male HEENT: Normocephalic atraumatic, extraocular muscles are intact, oropharynx is clear, neck is supple, there is bilateral palpable enlargement of the thyroid gland. There are no palpable nodules noted. There is no supraclavicular adenopathy. Lungs: Decreased breath sounds, bilateral rhonchi in the bases Cardiac exam: Regular rate rhythm normal S1-S2 Abdomen: Soft, multiple areas of scarring, well-healed midline surgical incisions, no appreciable hepatosplenomegaly Extremities: No edema Neuro exam: Cranial nerves 2-12 are intact, sensation is grossly intact, stren gth is symmetric and equal, reflexes are brisk and equal, gait is not assessed Neuro exam: Patient is awake alert and oriented, answers questions appropriately, no evidence of hallucinations, no tics or tremors Objective Labs Result Diagrams: 03/01/19 10:05 03/01/19 10:05 Labs: Laboratory Results - last 24 hr 03/01/19 03/01/19 03/01/19 10:05 10:05 10:05 WBC 10.0 RBC 3.94 L Hgb 11.8 L Hct 35.8 L MCV 90.8 MCH 29.9 MCHC 32.9 RDW 15.8 H Plt Count 457 H Neut % (Auto) 50.1 Lymph % (Auto) 36.0 Arroyo % (Auto) 8.1 Eos % (Auto) 4.8 H Baso % (Auto) 1.0 Neut # (Auto) 5000 Lymph # (Auto) 3600 [place] # (Auto) 800 Eos # (Auto) 500 H Baso # (Auto) 100 Sodium 135 L Potassium 4.7 Chloride 96 L Carbon Dioxide 29 BUN 50 H Creatinine 2.40 H Estimated GFR 27.1 L BUN/Creatinine Ratio 20.8 Glucose 83 Lactate Calcium 14.4 H* Phosphorus 5.9 H Magnesium 1.9 Total Bilirubin 0.4 AST 32 ALT 18 L Alkaline Phosphatase 92 Total Creatine Kinase < 20 L CK-MB (CK-2) TNP CK-MB (CK-2) Rel Index TNP Troponin I < 0.012 Total Protein 8.2 Albumin 3.9 Globulin 4.3 H Albumin/Globulin Ratio 0.9 L Lipase 18 L Procalcitonin Urine RBC Urine WBC Ur Squamous Epith Cells Calcium Oxalate Crystal Urine Bacteria Hyaline Casts Ur Culture Indicated? 03/01/19 03/01/19 03/01/19 10:05 10:33 13:13 WBC RBC Hgb Hct MCV MCH MCHC RDW Plt Count Neut % (Auto) Lymph % (Auto) Arroyo % (Auto) Eos % (Auto) Baso % (Auto) Neut # (Auto) Lymph # (Auto) [place]roy[place] # (Auto) Eos # (Auto) Baso # (Auto) Sodium Potassium Chloride Carbon Dioxide BUN Creatinine Estimated GFR BUN/Creatinine Ratio Glucose Lactate 1.2 Calcium Phosphorus Magnesium Total Bilirubin AST ALT Alkaline Phosphatase Total Creatine Kinase CK-MB (CK-2) CK-MB (CK-2) Rel Index Troponin I Total Protein Albumin Globulin Albumin/Globulin Ratio Lipase Procalcitonin 0.12 Urine RBC 1-5/hpf Urine WBC 1-5/hpf Ur Squamous Epith Cells 0-1 /hpf Calcium Oxalate Crystal Moderate H Urine Bacteria Occasional (0-1) Hyaline Casts 5-10/lpf Ur Culture Indicated? Cult not indicated Assessment & Plan (1) Hypercalcemia: Problem details: Patient is a 68-year-old male who is admitted to the hospital with severe hypercalcemia. Differential diagnosis include carcinoma, squamous cell in particular, multiple myeloma, milk alkali syndrome, hypercalcemic hypercalciuria hypercalcemia, metastatic disease, TB, hyperparathyroidism Plan will continue aggressive IV hydration, will check SPEP UPEP serum parathyroid hormone, TSH, ultrasound of the thyroid, urinary calcium, skeletal series of the bones to rule out blastic lesions, and repeat calcium. Patient will receive pamidronate tonight in addition to his IV fluid and will follow his calcium closely. Current visit: Yes Status: Acute (2) Hyperphosphatemia: Problem details: Hyperphosphatemia, present on admission. Will treat with IV hydrate and recheck Current visit: Yes Status: Acute (3) Acute kidney injury: Problem details: Acute kidney injury, present on admission, suspect secondary to hypercalcemia. Patient will continue with IV hydration. Will recheck his electrolytes in the morning. Suspect the patient has acute on chronic renal failure. Current visit: Yes Status: Acute (4) Atopic dermatitis: Problem details: Atopic dermatitis, chronic Current visit: No Status: Chronic (5) COPD with exacerbation: Problem details: COPD, chronic no evidence of an acute exacerbation Current visit: No Status: Acute (6) Pneumonia: Problem details: Pneumonia, acute, present on admission. Will continue IV levofloxacin. Given the cavitary lesions on CT would suggest outpatient bronchoscopy to rule out the possibility of malignancy. Current visit: Yes Status: Acute (7) Weight loss: Problem details: Weight loss, in the setting of hypercalcemia severe concerning for possible malignancy. Will continue do diligent in further workup Current visit: Yes Status: Acute (8) Protein calorie malnutrition: Problem details: Protein calorie malnutrition, Nutrition consult obtained Current visit: Yes Status: Acute (9) Tobacco abuse: Problem details: Tobacco dependence, will offer nicotine patch and counseling to discontinue smoking Current visit: No Status: None Assessment & Plan narrative: Long discussion with the patient he requests DNR status. Will continue workup as an note the record accordingly. Quality VTE Deep Vein Thrombosis/Pulmonary Embolism Present on Admission: No
[2019-03-01] MEDS: PAMIDRONATE DISODIUM 60 MG in SODIUM CHLORIDE 0.9% 1,000 ML 500 MG IV (18:11)
[2019-03-01] MEDS: levoFLOXacin 500 MG/100 ML PIGGYBACK 100 MG IV (18:13)
[2019-03-01 19:11] LABS: Procalcitonin 0.06 ng/mL (<0.5)
--- NOTE | 2019-03-01 19:13 | PC.NURSE ---
Addendum entered by Sera More R.N. 03/01/19 22:28: Relatively uneventful evening. Denies discomfort IVF continue as per orders. Call light w/in reach, bed alram on fo pt safety. Continue per plan of care. Original Note: Pt resting quietly this afternoon. Lungs clear, SpO2 97% RA IVF infusing as per orders, via pump into the RAC Tele shows NSR per ICU staff. Call light w/in reach, bed alrm on for pt safety.
[2019-03-01 19:27] LABS: Calcium Urine Random 17.5
[2019-03-01] MEDS: ALBUTEROL/IPRATROPIUM 3 ML AMPUL INH (19:48)
[2019-03-01] MEDS: BUDESONIDE 60 PUFF/DEVICE INHALER INH (19:48)
[2019-03-01 21:04] LABS: Adenovirus Not Detected (Not Detect); Bordetella pertussis Not Detected (Not Detect); Chlamydophila pneumoniae Not Detected (Not Detect); Coronavirus 229E Not Detected (Not Detect); Coronavirus HKU1 Not Detected (Not Detect); Coronavirus NL 63 Not Detected (Not Detect); Coronavirus OC43 Not Detected (Not Detect); Human Metapneumovirus Not Detected (Not Detect); Human Rhinovirus/Enterovirus Not Detected (Not Detect); Influenza A Not Detected (Not Detect); Influenza B Not Detected (Not Detect); Mycoplasma pneumoniae Not Detected (Not Detect); Parainfluenza Virus 1 Not Detected (Not Detect); Parainfluenza Virus 2 Not Detected (Not Detect); Parainfluenza Virus 3 Not Detected (Not Detect); Parainfluenza Virus 4 Not Detected (Not Detect); Respiratory Syncytial Virus Not Detected (Not Detect)
[2019-03-01] MEDS: CLOTRIMAZOLE TROCHE 10 MG PO (21:46)
[2019-03-01] MEDS: DOCUSATE 100 MG CAPSULE PO (21:46)
[2019-03-02] VITALS (13 sets, daily range): BP systolic 121–153; BP diastolic 65–83; PULSE 74–111; RESP 16–22; TEMP 36.6–37.4; O2SAT 96–100; BMI 17.5
--- NOTE | 2019-03-02 00:26 | PC.NURSE ---
2300- Pt admit from ED for hypercalcemia w/ Calcium level of 14 per Lab Report. Moving 1PA in room, using urinal indep, calls appropriately. Bed alarm in place for safety; tele in place reading SR; cont SpO2 in place. NS running as ordered w/ output being measured--no actual orders for strict I&O at this time. Bottom is red & healing, pt skin fragile.
[2019-03-02] MEDS: SODIUM CHLORIDE 0.9% 1,000 ML 200 ML IV ×3 (02:27→14:38)
[2019-03-02] MEDS: ACETAMINOPHEN 325 MG TABLET 650 MG PO (04:01)
[2019-03-02 05:32] LABS: Add Manual Diff / Slide Review NO; Basophils Absolute Auto 0 /uL (0-100); Basophils Percent Auto 0.5 % (0-2); Eosinophils Absolute Auto 500 /uL (0-450); Eosinophils Percent Auto 5.9 % (2-4); Hemoglobin 9.5 g/dL (13.5-17.5); Lymphocytes Absolute Auto 2400 /uL (1100-4500); Lymphocytes Percent Auto 26.1 % (25-40); Mean Corpuscular HGB Conc 33.8 % (30-36); Mean Corpuscular Hemoglobin 30.5 PG (26-34); Mean Corpuscular Volume 90.2 fL (80-100); Monocytes Absolute Auto 800 /uL (0-900); Neutrophils Absolute Auto 5400 /uL (1500-7000); Neutrophils Percent Auto 58.5 % (50-75); Platelet Count 333 X10^3/uL (150-400); Red Cell Distribution Width 15.7 % (11.6-14.8); White Blood Cell Count 9.2 X10^3/uL (4.5-11.0)
[2019-03-02 05:40] LABS: Alanine Aminotransferase 17 IU/L (21-72); Albumin 2.7 g/dL (3.5-5.0); Albumin Globulin Ratio 0.8 (1.0-2.8); Alkaline Phosphatase 71 U/L (38-126); Aspartate Aminotransferase 14 IU/L (17-59); BUN Creatinine Ratio 18.9 (6-22); Bilirubin Total 0.2 mg/dL (0.2-1.3); Blood Urea Nitrogen 34 mg/dL (9-20); Calcium 11.7 mg/dL (8.4-10.2); Carbon Dioxide 24 mmol/L (22-32); Chloride 107 mmol/L (98-107); Estimated Glomerular Filt Rate 37.7 mL/min (>60); Globulin 3.2 g/dL (1.7-4.1); Glucose 71 mg/dL (80-110); HEMOLYSIS < 15 (0-50); Magnesium 1.5 mg/dL (1.6-2.3); Potassium 3.9 mmol/L (3.4-5.1); Sodium 136 mmol/L (137-145); Total Protein 5.9 g/dL (6.3-8.2)
[2019-03-02] MEDS: ALBUTEROL/IPRATROPIUM 3 ML AMPUL INH ×4 (05:59→18:00)
[2019-03-02] MEDS: BUDESONIDE 60 PUFF/DEVICE INHALER INH ×2 (05:59→18:00)
[2019-03-02 06:13] LABS: Thyroid Stimulating Hormone 1.95 uIU/mL (0.47-4.68)
[2019-03-02] MEDS: MAGNESIUM SULFATE 2 GM/50 ML PIGGYBACK IV (06:32)
[2019-03-02] MEDS: ENOXAPARIN 30 MG/0.3 ML SYRINGE SUBCUT (09:21)
[2019-03-02] MEDS: CLOTRIMAZOLE TROCHE 10 MG PO ×2 (09:22→20:35)
[2019-03-02] MEDS: DOCUSATE 100 MG CAPSULE PO ×2 (09:22→20:35)
--- NOTE | 2019-03-02 15:53 | P.PN_ITS ---
Subjective Date Patient Seen: 03/02/19 Interval history: The patient is a 68-year-old male admitted to the hospital for hypercalcemia. He was also found to have community-acquired pneumonia. He has COPD as baseline he reports feeling significantly improved today. With IV hydration he has had improvement of his calcium to 11.4 today. His renal function has improved as well. Patient has no other specific complaints Exam Vital Signs (past 8 hours): - 03/02/19 07:55 03/02/19 08:00 03/02/19 10:00 Temperature 97.8 F Pulse Rate 80 74 Respiratory Rate 20 16 Blood Pressure 121/65 Pulse Oximetry 100 97 100 03/02/19 12:00 03/02/19 13:50 03/02/19 15:39 Temperature 99.4 F 98.2 F Pulse Rate 89 90 93 H Respiratory Rate 18 16 20 Blood Pressure 129/82 122/78 Pulse Oximetry 100 98 100 Fraction of Inspired Oxygen 21 Oxygen Delivery Method Room Air Oxygen Flow Rate 0 Narrative Exam Narrative: Cachectic ill-appearing male Lungs: Scattered rhonchi Cardiac exam: Regular rate and rhythm normal S1-S2 Abdomen: Soft nontender nondistended Extremities: No edema Objective Labs Result Diagrams: 03/02/19 05:09 03/02/19 05:09 Labs: Laboratory Results - last 24 hr 03/01/19 03/01/19 03/01/19 12:15 18:07 19:25 WBC RBC Hgb Hct MCV MCH MCHC RDW Plt Count Neut % (Auto) Lymph % (Auto) Tyrrell % (Auto) Eos % (Auto) Baso % (Auto) Neut # (Auto) Lymph # (Auto) Tyrrell # (Auto) Eos # (Auto) Baso # (Auto) Sodium Potassium Chloride Carbon Dioxide BUN Creatinine Estimated GFR BUN/Creatinine Ratio Glucose Calcium Magnesium Total Bilirubin AST ALT Alkaline Phosphatase Total Protein Albumin Globulin Albumin/Globulin Ratio Procalcitonin 0.06 TSH Ur Random Calcium 17.5 Chlamy pneumoniae PCR Not detected Adenovirus (PCR) Not detected B.parapertussis DNA PCR Not detected Coronavirus OC43 (PCR) Not detected Coronavirus HKU1 (PCR) Not detected Coronavirus 229E (PCR) Not detected Coronavirus NL63 (PCR) Not detected Human Metapneumovir PCR Not detected Influenza Type A (PCR) Not detected Influenza Type B (PCR) Not detected M. pneumoniae (PCR) Not detected Parainfluenza 1 (PCR) Not detected Parainfluenza 2 (PCR) Not detected Parainfluenza 3 (PCR) Not detected Parainfluenza 4 (PCR) Not detected RSV (PCR) Not detected Entero/Rhino (PCR) Not detected 03/02/19 03/02/19 03/02/19 05:09 05:09 05:09 WBC 9.2 RBC 3.10 L Hgb 9.5 L Hct 28.0 L MCV 90.2 MCH 30.5 MCHC 33.8 RDW 15.7 H Plt Count 333 Neut % (Auto) 58.5 Lymph % (Auto) 26.1 Tyrrell % (Auto) 9.0 Eos % (Auto) 5.9 H Baso % (Auto) 0.5 Neut # (Auto) 5400 Lymph # (Auto) 2400 Tyrrell # (Auto) 800 Eos # (Auto) 500 H Baso # (Auto) 0 Sodium 136 L Potassium 3.9 Chloride 107 Carbon Dioxide 24 BUN 34 H Creatinine 1.80 H Estimated GFR 37.7 L BUN/Creatinine Ratio 18.9 Glucose 71 L Calcium 11.7 H Magnesium 1.5 L Total Bilirubin 0.2 AST 14 L ALT 17 L Alkaline Phosphatase 71 Total Protein 5.9 L Albumin 2.7 L Globulin 3.2 Albumin/Globulin Ratio 0.8 L Procalcitonin TSH 1.95 Ur Random Calcium Chlamy pneumoniae PCR Adenovirus (PCR) B.parapertussis DNA PCR Coronavirus OC43 (PCR) Coronavirus HKU1 (PCR) Coronavirus 229E (PCR) Coronavirus NL63 (PCR) Human Metapneumovir PCR Influenza Type A (PCR) Influenza Type B (PCR) M. pneumoniae (PCR) Parainfluenza 1 (PCR) Parainfluenza 2 (PCR) Parainfluenza 3 (PCR) Parainfluenza 4 (PCR) RSV (PCR) Entero/Rhino (PCR) Assessment & Plan (1) Hypercalcemia: Problem details: Patient has had improvement of his hypercalcemia with IV fluids and pamidronate. Still awaiting his SPEP and UPEP as well as serum parathyroid hormone level. Will obtain a skeletal series. His TSH was normal. Thyroid scan was normal. 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 Current visit: Yes Status: Acute (2) Hyperphosphatemia: Problem details: Hyperphosphatemia, present on admission. Will treat with IV hydrate and recheck Current visit: Yes Status: Acute (3) Weakness: Problem details: Weakness, present on admission, likely related to hypercalcemia Current visit: Yes Status: Acute (4) Acute kidney injury: Problem details: Acute kidney injury, present on admission, suspect secondary to hypercalcemia. Patient will continue with IV hydration. Will recheck his electrolytes in the morning. Suspect the patient has acute on chronic renal failure. Acute on chronic renal failure, improved Current visit: Yes Status: Acute (5) Pneumonia: Problem details: Pneumonia, acute, present on admission. Will continue IV levofloxacin. Given the cavitary lesions on CT would suggest outpatient bronchoscopy to rule out the possibility of malignancy. Continue antibiotic Current visit: Yes Status: Acute (6) Weight loss: Problem details: Weight loss, in the setting of hypercalcemia severe concerning for possible malignancy. Will continue do diligent in further workup Current visit: Yes Status: Acute (7) Protein calorie malnutrition: Problem details: Protein calorie malnutrition, Nutrition consult obtained Current visit: Yes Status: Acute Assessment & Plan narrative: Will await the results. Will follow his electrolytes as well. Quality VTE Deep Vein Thrombosis/Pulmonary Embolism Present on Admission: No
[2019-03-02] MEDS: SODIUM CHLORIDE 0.9% 1,000 ML 125 ML IV ×2 (16:14→21:38)
[2019-03-02 19:10] LABS: Calcium 10.7 mg/dL (8.4-10.2)
[2019-03-03 00:25] VITALS: BP 125/66; PULSE 96; RESP 18; TEMP 37.3; O2SAT 97
[2019-03-03] MEDS: OXYCODONE/ACETAMINOPHEN 5/325 TABLET 1 TAB PO ×2 (01:06→09:49)
[2019-03-03 04:00] VITALS: BP 145/79; PULSE 77; RESP 20; TEMP 36.9; O2SAT 98
[2019-03-03 05:09] VITALS: PULSE 72; RESP 20; O2SAT 98
[2019-03-03] MEDS: BUDESONIDE 60 PUFF/DEVICE INHALER INH (05:09)
[2019-03-03] MEDS: ALBUTEROL/IPRATROPIUM 3 ML AMPUL INH ×2 (05:09→08:55)
[2019-03-03 05:52] LABS: BUN Creatinine Ratio 17.2 (6-22); Blood Urea Nitrogen 31 mg/dL (9-20); Calcium 10.2 mg/dL (8.4-10.2); Carbon Dioxide 24 mmol/L (22-32); Chloride 107 mmol/L (98-107); Estimated Glomerular Filt Rate 37.7 mL/min (>60); Glucose 73 mg/dL (80-110); HEMOLYSIS < 15 (0-50); Magnesium 1.5 mg/dL (1.6-2.3); Potassium 3.9 mmol/L (3.4-5.1); Sodium 137 mmol/L (137-145)
[2019-03-03 07:38] VITALS: BP 134/80; PULSE 78; RESP 20; TEMP 37.2; O2SAT 98
[2019-03-03 09:04] VITALS: PULSE 74; RESP 16; O2SAT 97
[2019-03-03] MEDS: DOCUSATE 100 MG CAPSULE PO (09:04)
[2019-03-03] MEDS: ENOXAPARIN 30 MG/0.3 ML SYRINGE SUBCUT (09:04)
[2019-03-03] MEDS: CLOTRIMAZOLE TROCHE 10 MG PO (09:04)
--- NOTE | 2019-03-03 10:24 | PM.DS.1 ---
History of Present Illness Chief complaint: Sent by doctor. Blood is not right Narrative: The patient is a 68-year-old male with a history of COPD, hypertension, psoriasis GERD renal insufficiency and chronic back pain who was seen by his PCP about 5-6 days ago. Patient was found to be hypercalcemic. He was also treated for pneumonia. The patient took antibiotics hoping that within a few days he would not require treatment. His PCP sent him to the hospital for inpatient treatment. The patient reports today he complained of pain in his bones feeling ill and presented to the emergency room for evaluation. In the emergency room he was found to be hypercalcemic. His calcium level was 14. The patient notes he has lost about 30 lb over the past several months. One month ago he underwent a hernia repair which was complicated by bowel obstruction requiring surgery he was ultimately transferred to [facility] and most recently back home. The patient states during the surgical time he lost some weight. Since then he was feeling better until most recently. He denies any fever chills or shortness of breath. He uses an inhaler intermittently. He denies any cough. He has had no hemoptysis. He denies any night sweats or fevers. He has had some pain in his chest and back which is chronic. No nausea vomiting or diarrhea. No dysuria hematuria or pyuria. No swelling in his ankles, no orthopnea. The patient was evaluated in the emergency department. He underwent a CT of the chest. CT was concerning for multiple alveolar infiltrates. There were cavitary lesions suggestive of either infiltrate but could not rule out squamous cell carcinoma. The patient is admitted to the hospital at this time for further evaluation Discharge Providers Date of admission: 03/01/19 12:40 Discharge Date: 03/03/19 Primary care physician: Jama Pruett MD Consults: 03/01/19 13:53 Consult to Dietitian, Adult Routine Comment: Reason For Exam: HIGH RISK, SIGNIFICANT WT LOSS Consult to Pastoral Services Routine Comment: PER PATIENT REQUEST 03/01/19 15:48 Consult to Dietitian, Adult Routine Comment: Reason For Exam: weight loss Discharge provider: Giuliana Gómez MD Summary Discharge Diagnosis: 1. Hypercalcemia 2. Community-acquired pneumonia 3. COPD 4. Acute on chronic, renal failure, stage III 5. Psoriasis 6. Protein calorie malnutrition 7. Anemia Hospital Course: Patient was admitted to the hospital for hypercalcemia and pneumonia. He was treated with IV levofloxacin. He had no hypoxemia. Had no shortness of breath. He remained afebrile throughout the hospital stay. The patient had improvement of his renal failure with IV hydration. He received 1 dose of pamidronate with excellent results. His calcium improved from 14.4-10.2. Patient's renal insufficiency improved as well. He underwent a UPEP and SPEP which is pending at the time of this dictation. In addition his serum parathyroid hormone level is still pending. In addition the patient had a CT of the chest. The CT of the chest findings are as follows: Multifocal patchy alveolar opacities, and interval development of superior segment right lower lobe consolidation. The presence of cavitation in this consolidation and lingular parenchymal process raises possibility of septic embolus although squamous cell carcinoma is also not excluded. 2. Peribronchial consolidation in the right upper lobe is chronic and there is developing accompanying bronchiectasis. Chronic inflammatory processes such as atypical infection, cryptogenic organized pneumonia, sarcoid, and drug reactions, etc. should be considered. 3. Interval resolution of bilateral pleural effusions and decreased size of a few left lower lobe lung nodules. 4. Findings superimposed on moderate emphysema. 5. Mild bilateral axillary adenopathy, nonspecific. No other adenopathy in the chest. As the patient had a markedly abnormal CT scan of the chest recommendations are made for him to follow up with Pulmonary as an outpatient for bronchoscopy. Patient follows up with Dr. Vargas and he should follow up with him as an outpatient as well. Patient feels significantly improved, has no shortness of breath, has no further weakness, and was deemed appropriate for discharge home. Exam Vital Signs (past 8 hours): - 03/03/19 04:00 03/03/19 05:09 03/03/19 07:38 Temperature 98.4 F 98.9 F Pulse Rate 77 72 78 Respiratory Rate 20 20 20 Blood Pressure 145/79 H 134/80 Pulse Oximetry 98 98 98 03/03/19 09:04 Temperature Pulse Rate 74 Respiratory Rate 16 Blood Pressure Pulse Oximetry 97 Fraction of Inspired Oxygen 21 Oxygen Delivery Method Room Air Oxygen Flow Rate 0 Narrative Exam Narrative: Ill-appearing male, cachectic Lungs: Decreased breath sounds with occasional scattered rhonchi Cardiac exam: Regular rate rhythm normal S1-S2 Abdomen: Soft nontender nondistended Extremities: No edema Objective Labs Result Diagrams: 03/02/19 05:09 03/03/19 05:28 Labs: Laboratory Results - last 24 hr 03/02/19 03/03/19 17:33 05:28 Sodium 137 Potassium 3.9 Chloride 107 Carbon Dioxide 24 BUN 31 H Creatinine 1.80 H Estimated GFR 37.7 L BUN/Creatinine Ratio 17.2 Glucose 73 L Calcium 10.7 H 10.2 Magnesium 1.5 L Discharge Plan Discharge Plan Discharge Problem: Hypercalcemia, Hyperphosphatemia, Weakness, Acute kidney injury Patient Disposition: Home Discharge Med Rec/Prescriptions Prescriptions: New budesonide [Pulmicort Flexhaler] 180 mcg/actuation Aerosol Powdr Breath Activated 2 puff INH RTBID 30 Days RF: 0 Continued Pepto-Bismol Max St 525 MG/15 ML suspension 1 dose PO DAILY PRN (Reason: Abdominal Discomfort) Qty: 0 RF: 0 lorazepam 1 mg tablet 1 mg PO BIDP PRN (Reason: anxiety) Qty: 60 RF: 5 oxycodone-acetaminophen 5-325 mg tablet 1 tab PO TID PRN (Reason: pain) Qty: 90 RF: 0 levofloxacin 500 mg tablet 1 tab PO DAILY RF: 0 clotrimazole 10 mg cici 1 lozenge/day PO BID RF: 0 albuterol sulfate [Ventolin HFA] 90 mcg/actuation HFA aerosol inhaler 1 puff Inhalation Q4H PRN (Reason: Shortness Of Breath Or Wheezing) RF: 0 Dupixent 300 mg/2 mL syringe See Rx Instructions .ROUTE .COMPLEX RF: 0 Follow up/Referrals: Jama Pruett MD [Primary Care Provider] - Provider Discharge Instructions Diet: Diet as Tolerated Activity: as tolerated Oxygen: not indicated Discharge Data Primary Care Provider: Jama Pruett Attending Provider: Giuliana Gómez Admit Date/Time: 03/01/19 12:40 Quality VTE Deep Vein Thrombosis/Pulmonary Embolism Present on Admission: No
--- NOTE | 2019-03-03 10:51 | PC.NURSE ---
Addendum entered by Nichole Gordillo R.N. 03/03/19 10:59: Patient decided he wanted a taxi for an [place] ride[facility]self [facility] and service arranged. Patient walked to ER patient entrance to meet taxi at 1100. Original Note: Discharge Note: Patient discharged home this shift. Discharge prescription given to patient, discharge instructions and follow-up reviewed with patient. Verbal understanding received. Patient denies any questions about discharge. Telemetry removed, IV site removed. Patient getting dressed and awaiting ride.
[2019-03-05 14:34] LABS: Parathyroid Hormone Int 8 pg/mL (14-64)
[2019-03-05 16:42] LABS: Albumin 2.8 g/dL (3.8-4.8); Alpha 1 Globulin 0.4 g/dL (0.2-0.3); Alpha 2 Globulin 0.8 g/dL (0.5-0.9); Beta 1 Globulin 0.3 g/dL (0.4-0.6); Gamma Globulin 1.6 g/dL (0.8-1.7); Protein, Total 6.3 g/dL (6.1-8.1)
[2019-03-06 13:51] LABS: Vitamin A 76 mcg/dL (38-98)
[2019-03-06 15:57] LABS: 1 25 Dihydroxy Vitamin D 24 pg/mL (18-72)
[2019-03-08 16:33] LABS: Albumin 100 %; Protein/ Creatinine Ratio 313 mg/g creat (22-128); Total Urine Protein 7 mg/dL (5-25); Urine Creatinine, Random 22 mg/dL (20-320)
== END 2019-03-03 11:00 | disposition home or self-care (01) | DRG 640 ==
LOC: ED 09:46 → AC 13:07
PROVIDERS: Admitting Provider Internal Medicine; Emergency Provider Emergency Medicine; PCP Student in an Organized Health Care Education/Training Program; Visit Provider Internal Medicine
DX: E83.52 Hypercalcemia (principal); J18.9 Pneumonia, unspecified organism; E43 Unspecified severe protein-calorie malnutrition; N17.9 Acute kidney failure, unspecified; Z68.1 Body mass index [BMI] 19.9 or less, adult; E83.39 Other disorders of phosphorus metabolism; J44.9 Chronic obstructive pulmonary disease, unspecified; K21.9 Gastro-esophageal reflux disease without esophagitis; F17.210 Nicotine dependence, cigarettes, uncomplicated; I12.9 Hypertensive chronic kidney disease with stage 1 through stage 4 chronic kidney disease, or unspecified chronic kidney disease; N18.3 Chronic kidney disease, stage 3 (moderate); R59.1 Generalized enlarged lymph nodes
CPT/HCPCS: 36415; 71045; 71250; 76536; 80048; 80053; 81003; 81015; 82310; 82330; 82340; 82550; 82652; 83605; 83690; 83735; 83970; 84100; 84145; 84155; 84156; 84165; 84166; 84443; 84484; 84590; 85025; 87040; 87633; 93005; 94640; 94760; 94762; 96360; 96361; 99283; 99285; 99406; J1650; J1956; J2430